=== PATIENT | male | born 1955 | race Caucasian/White ===

== ENCOUNTER 2017-05-02 09:27 | Inpatient (IN) | payer OTHER ==
[~2017-05-02] VITALS: Ht 172.7 cm; Wt 65.5 kg
[~2017-05-02 09:27] MED LIST: DIPH2%T PO
[2017-05-02 09:28] VITALS: BP 130/94; PULSE 80; RESP 20; TEMP 98.5; O2SAT 93
[2017-05-02] MEDS ORDERED: SODIUM CHLOR 0.9% 1000 ML INJ 1,000 ML IV SCH (09:39)
[2017-05-02] MEDS ORDERED: ONDANSETRON HCL 4 MG/2 ML VIAL IVP ONE (09:45)
[2017-05-02] MEDS ORDERED: SODIUM CHLORIDE 0.9% FLUSH 10 ML FLUSH IV FLUSH PRN ×2 (09:45→11:15)
[2017-05-02] MEDS ORDERED: MORPHINE SULFATE 4 MG/ML INJ IV PUSH ONE (09:45)
--- NOTE | 2017-05-02 09:48 | PD ---
HPI Chief Complaint: GI Complaint Time Seen by Provider: 09:35 Travel History International Travel<30 days: No Contact w/Intl Traveler<30days: No Traveled to known affect area: No History of Present Illness HPI The patient is a 61-year-old male who presents to the emergency department for right upper quadrant abdominal pain of one week's duration. The patient notes over the last week he has had right upper quadrant abdominal pain associated with nausea and vomiting. The patient notes decreased oral intake secondary to persistent pain. The patient denies any diarrhea, constipation, or change in bowel habits. The patient denies any associated fever, chills, or sweats. The pain is sharp, located right upper quadrant, radiates to the right mid back, is associated with nausea and vomiting. The patient does have a history of hepatitis C and COPD. The patient currently takes no medications on a regular basis and does not have a primary physician. He denies any alcohol ingestion. He denies any previous abdominal surgeries. The patient last ate at 7 AM, yogurt. PFSH Past Medical History Asthma: No Blood Disorders: Yes (hypotysis today) Heart Rhythm Problems: No Cancer: No Cardiovascular Problems: No High Cholesterol: No Chemotherapy: No Chest Pain: No Congestive Heart Failure: No COPD: Yes (emphysema, bronchitis since childhood) Cerebrovascular Accident: No Diabetes: No Endocrine: No Gastrointestinal Disorders: Yes (Hepatitis C) GERD: No Genitourinary: No Headaches: Yes Hepatitis: No Hiatal Hernia: No Immune Disorder: No Neurologic: No Psychiatric: No Reproductive: No Respiratory: Yes Migraines: Yes Radiation Therapy: No Seizures: No Sleep Apnea: No Thyroid Disease: No Ulcer: No Tetanus Vaccination: > 5 Years Past Surgical History Abdominal Surgery: No Appendectomy: No Cardiac Surgery: No Cholecystectomy: No Ear Surgery: No Endocrine Surgery: No Eye Surgery: No Genitourinary Surgery: No Gynecologic Surgery: No Oral Surgery: No Thoracic Surgery: No Other Surgery: Yes (ortho surgery to rt hip) Social History Alcohol Use: No Tobacco Use: No Substance Use: No Allergies-Medications (Allergen,Severity, Reaction): Coded Allergies: prednisone (Unverified Allergy, Severe, Irritability/Anxiety, 05/02/17) PT STATES HE FELT LIKE JUMPING OUT OF THE WINDOW WHEN HE TOOK PREDNISONE LAST *MDRO Multi-Drug Resistant Organism (Unverified Adverse Reaction, Unknown , 05/02/17) MRSA 2009 MRSA and wound Reported Meds & Prescriptions Reported Meds & Active Scripts Active No Active Prescriptions or Reported Medications Review of Systems Except as stated in HPI: all other systems reviewed are Neg General / Constitutional: No: Fever Cardiovascular: No: Chest Pain or Discomfort Respiratory: No: Shortness of Breath Gastrointestinal: Positive: Nausea, Vomiting, Abdominal Pain, No: Diarrhea Genitourinary: No: Dysuria Physical Exam Narrative GENERAL: Awake, alert, pleasant 61-year-old male who appears his stated age and is in no acute respiratory distress. SKIN: Focused skin assessment warm/dry. HEAD: Atraumatic. Normocephalic. EYES: Pupils equal and round. No scleral icterus. No injection or drainage. ENT: No nasal bleeding or discharge. Mucous membranes pink and moist. NECK: Trachea midline. No JVD. CARDIOVASCULAR: Regular rate and rhythm. No murmur appreciated. RESPIRATORY: No accessory muscle use. Clear to auscultation. Breath sounds equal bilaterally. GASTROINTESTINAL: Abdomen soft, tender palpation right upper quadrant consistent with positive Valdez sign. No guarding or rigidity. Back: No CVA tenderness. MUSCULOSKELETAL: No obvious deformities. No clubbing. No cyanosis. No edema. NEUROLOGICAL: Awake and alert. No obvious cranial nerve deficits. Motor grossly within normal limits. Normal speech. PSYCHIATRIC: Appropriate mood and affect; insight and judgment normal. Data Data Last Documented VS Vital Signs Date Time Temp Pulse Resp B/P (MAP) Pulse Ox O2 Delivery O2 Flow Rate FiO2 05/02/17 09:28 98.5 80 20 130/94 (106) 93 Room Air Orders Orders Complete Blood Count With Diff (05/02/17 09:39) Comprehensive Metabolic Panel (05/02/17 09:39) Lipase (05/02/17 09:39) Urinalysis - C+S If Indicated (05/02/17 09:39) Us Abdomen Gallbladder (05/02/17 ) Iv Access Insert/Monitor (05/02/17 09:39) Ecg Monitoring (05/02/17 09:39) Oximetry (05/02/17 09:39) Morphine Inj (Morphine Inj) (05/02/17 09:45) Ondansetron Inj (Zofran Inj) (05/02/17 09:45) Sodium Chlor 0.9% 1000 Ml Inj (Ns 1000 M (05/02/17 09:39) Sodium Chloride 0.9% Flush (Ns Flush) (05/02/17 09:45) Ampicillin-Sulbactam Inj (Unasyn Inj) (05/02/17 10:45) Act Partial Throm Time (Ptt) (05/02/17 10:32) Prothrombin Time / Inr (Pt) (05/02/17 10:32) Electrocardiogram (05/02/17 ) Chest, Single Ap (05/02/17 ) Labs Laboratory Tests Test 05/02/17 09:50 White Blood Count 6.1 TH/MM3 Red Blood Count 3.95 MIL/MM3 Hemoglobin 13.0 GM/DL Hematocrit 37.3 % Mean Corpuscular Volume 94.4 FL Mean Corpuscular Hemoglobin 32.9 PG Mean Corpuscular Hemoglobin Concent 34.9 % Red Cell Distribution Width 14.1 % Platelet Count 139 TH/MM3 Mean Platelet Volume 8.7 FL Neutrophils (%) (Auto) 73.7 % Lymphocytes (%) (Auto) 14.6 % Monocytes (%) (Auto) 8.6 % Eosinophils (%) (Auto) 2.6 % Basophils (%) (Auto) 0.5 % Neutrophils # (Auto) 4.5 TH/MM3 Lymphocytes # (Auto) 0.9 TH/MM3 Monocytes # (Auto) 0.5 TH/MM3 Eosinophils # (Auto) 0.2 TH/MM3 Basophils # (Auto) 0.0 TH/MM3 CBC Comment DIFF FINAL Differential Comment Urine Color YELLOW Urine Turbidity CLEAR Urine pH 7.5 Urine Specific [place] 1.016 Urine Protein TRACE mg/dL Urine Glucose (UA) NEG mg/dL Urine Ketones NEG mg/dL Urine Occult Blood NEG Urine Nitrite NEG Urine Bilirubin NEG Urine Urobilinogen LESS THAN 2.0 MG/DL Urine Leukocyte Esterase NEG Urine RBC LESS THAN 1 /hpf Urine WBC LESS THAN 1 /hpf Urine Mucus FEW /lpf Microscopic Urinalysis Comment CULT NOT INDICATED Blood Urea Nitrogen 11 MG/DL Creatinine 1.05 MG/DL Random Glucose 133 MG/DL Total Protein 7.9 GM/DL Albumin 3.1 GM/DL Calcium Level 8.3 MG/DL Alkaline Phosphatase 76 U/L Aspartate Amino Transf (AST/SGOT) 24 U/L Alanine Aminotransferase (ALT/SGPT) 23 U/L Total Bilirubin 0.8 MG/DL Sodium Level 132 MEQ/L Potassium Level 4.0 MEQ/L Chloride Level 96 MEQ/L Carbon Dioxide Level 29.4 MEQ/L Anion Gap 7 MEQ/L Estimat Glomerular Filtration Rate 72 ML/MIN Lipase 45 U/L [facility] Medical Decision Making Medical Screen Exam Complete: Yes Emergency Medical Condition: Yes Medical Record Reviewed: Yes Interpretation(s) Laboratory Tests Test 05/02/17 09:50 White Blood Count 6.1 TH/MM3 Red Blood Count 3.95 MIL/MM3 Hemoglobin 13.0 GM/DL Hematocrit 37.3 % Mean Corpuscular Volume 94.4 FL Mean Corpuscular Hemoglobin 32.9 PG Mean Corpuscular Hemoglobin Concent 34.9 % Red Cell Distribution Width 14.1 % Platelet Count 139 TH/MM3 Mean Platelet Volume 8.7 FL Neutrophils (%) (Auto) 73.7 % Lymphocytes (%) (Auto) 14.6 % Monocytes (%) (Auto) 8.6 % Eosinophils (%) (Auto) 2.6 % Basophils (%) (Auto) 0.5 % Neutrophils # (Auto) 4.5 TH/MM3 Lymphocytes # (Auto) 0.9 TH/MM3 Monocytes # (Auto) 0.5 TH/MM3 Eosinophils # (Auto) 0.2 TH/MM3 Basophils # (Auto) 0.0 TH/MM3 CBC Comment DIFF FINAL Differential Comment Urine Color YELLOW Urine Turbidity CLEAR Urine pH 7.5 Urine Specific [place] 1.016 Urine Protein TRACE mg/dL Urine Glucose (UA) NEG mg/dL Urine Ketones NEG mg/dL Urine Occult Blood NEG Urine Nitrite NEG Urine Bilirubin NEG Urine Urobilinogen LESS THAN 2.0 MG/DL Urine Leukocyte Esterase NEG Urine RBC LESS THAN 1 /hpf Urine WBC LESS THAN 1 /hpf Urine Mucus FEW /lpf Microscopic Urinalysis Comment CULT NOT INDICATED Blood Urea Nitrogen 11 MG/DL Creatinine 1.05 MG/DL Random Glucose 133 MG/DL Total Protein 7.9 GM/DL Albumin 3.1 GM/DL Calcium Level 8.3 MG/DL Alkaline Phosphatase 76 U/L Aspartate Amino Transf (AST/SGOT) 24 U/L Alanine Aminotransferase (ALT/SGPT) 23 U/L Total Bilirubin 0.8 MG/DL Sodium Level 132 MEQ/L Potassium Level 4.0 MEQ/L Chloride Level 96 MEQ/L Carbon Dioxide Level 29.4 MEQ/L Anion Gap 7 MEQ/L Estimat Glomerular Filtration Rate 72 ML/MIN Lipase 45 U/L Ultrasound of the gallbladder reveals gallbladder wall thickening with sludge. Additionally, Sonata refer reports a positive sonographic Valdez's sign suggesting acute gallbladder inflammation. Remainder of the examination demonstrates no significant abnormality. Chest x-ray reveals no acute cardiopulmonary abnormality identified. Differential Diagnosis Differential diagnosis includes cholecystitis, biliary colic, choledocholithiasis, symptomatic gallstones, pancreatitis, pyelonephritis, nephrolithiasis, gastritis, lower lobe pneumonia, diverticulitis. Narrative Course IV was established, labs are drawn and sent, and the patient was placed on cardiac telemetry monitoring and continuous pulse oximetry monitoring. The patient was administered morphine, Zofran, and IV fluids. Ultrasound of the gallbladder was ordered. The patient's white count, LFTs, and lipase are unremarkable. The patient's ultrasound reveals gallbladder wall thickening with sludge and a positive sonographic Valdez sign suggesting acute gallbladder inflammation. I reviewed the patient's EMR, he had a CTA angiogram performed 2013 which revealed a gallstone at that time. The patient's LFTs and lipase are normal now, I doubt choledocholithiasis, I suspect acute cholecystitis. The patient was administered Unasyn 3 g intravenously and a call was placed to the on-call surgeon, Dr. Ozuna, at 10:30 AM. I discussed the patient with Dr. Ozuna at 10:35 AM who recommends antibiotics and admission to medicine, he may just treat with IV antibiotics as the pain has been going on for one week and the patient may have significant inflammation. Therefore, the on-call medical team was paged for admission. I discussed the patient with the on-call medical service who agrees with admission. Physician Communication Physician Communication I discussed the patient with the on-call medical service who agrees with admission. Diagnosis Primary Impression: Acute cholecystitis Additional Impression: COPD (chronic obstructive pulmonary disease) Qualified Codes: J44.9 - Chronic obstructive pulmonary disease, unspecified Admitting Information Admitting Physician Requests: Admit Scripts No Active Prescriptions or Reported Meds Condition: Yonis Garcia MD May 02, 2017 09:48
[2017-05-02 10:03] LABS: AUTOMATED NEUTROPHIL # 4.5 TH/MM3 (1.8-7.7); BASOPHIL % 0.5 % (0.0-2.0); EOSINOPHIL # 0.2 TH/MM3 (0-0.4); EOSINOPHIL % 2.6 % (0.0-4.0); HEMATOCRIT 37.3 % (39.0-51.0); HEMO FLAGS DIFF FINAL; LYMPH % 14.6 % (9.0-44.0); LYMPHOCYTE # 0.9 TH/MM3 (1.0-4.8); MEAN CELL VOLUME 94.4 FL (80.0-100.0); MEAN CORPUSCULAR HEMOGLOBIN 32.9 PG (27.0-34.0); MEAN CORPUSCULAR HGB CONC 34.9 % (32.0-36.0); MONO % 8.6 % (0.0-8.0); NEUT % 73.7 % (16.0-70.0); PLATELET COUNT 139 TH/MM3 (150-450); RED BLOOD COUNT 3.95 MIL/MM3 (4.50-5.90); RED CELL DISTRIBUTION WIDTH 14.1 % (11.6-17.2); WHITE BLOOD COUNT 6.1 TH/MM3 (4.0-11.0)
[2017-05-02 10:15] VITALS: O2SAT 99
[2017-05-02 10:17] LABS: ALT (GPT) 23 U/L (12-78); ANION GAP 7 MEQ/L (5-15); AST (GOT) 24 U/L (15-37); BICARBONATE 29.4 MEQ/L (21.0-32.0); BLOOD UREA NITROGEN 11 MG/DL (7-18); BLOOD, URINE NEG (NEG); CHLORIDE 96 MEQ/L (98-107); GLOMERULAR FILTRATION RATE 72 ML/MIN (>89); GLUCOSE,URINE NEG (NEG); KETONE, URINE NEG (NEG); MUCUS URINE FEW /lpf (OCC); NITRITE,URINE NEG (NEG); PH, URINE 7.5 (5.0-8.5); SODIUM (NA) 132 MEQ/L (136-145); URINE COLOR YELLOW (YELLW/STRAW)
[2017-05-02 10:18] LABS: COMMENT (UR) CULT NOT INDICATED; CULTURE IF INDICATED CULT NOT INDICATED
[2017-05-02 10:20] LABS: ALKALINE PHOSPHATASE 76 U/L (45-117); TOTAL BILIRUBIN ADULT 0.8 MG/DL (0.2-1.0)
--- NOTE | 2017-05-02 10:26 | RADRPT ---
EXAM DATE/TIME: 05/02/2017 09:49 [facility] COMPARISON: CT THORAX W/O CONTRAST, February 01, 2014, 13:03. US ABDOMEN - LIVER, December 18, 2013, 8:13. INDICATIONS : Right upper quadrant pain. MEDICAL HISTORY : Chronic obstructive pulmonary disease. Emphysema. Hepatitis C. Migraines. Chronic bronchitis. Dyspnea . MRSA. SURGICAL HISTORY : Right hip. ENCOUNTER: Initial ACUITY: 1 week PAIN SCORE: 9/10 LOCATION: Right upper quadrant MEASUREMENTS: LIVER: 12.9 cm length COMMON DUCT: 6 mm RIGHT KIDNEY: 10.2 x 5.0 x 5.3 cm FINDINGS: LIVER: Normal echotexture without focal lesion or ductal dilatation. COMMON DUCT: No intraluminal mass or stone visualized. GALLBLADDER: Gallbladder contains sludge and demonstrates mildly thickened wall. The gear cutting machine operator reports a sonogra phic Valdez's. PANCREAS: The visualized portions are within normal limits. RIGHT KIDNEY: No evidence of hydronephrosis, stone, or mass. CONCLUSION: 1. Gallbladder wall thickening with sludge. Additionally, gear cutting machine operator reports a positive sonographic Valdez sign suggesting acute gallbladder inflammation. 2. Remainder of the examination demonstrates no significant abnormality. Anthony Troy MD on May 02, 2017 at 10:22 Board Certified Radiologist. This report was verified electronically.
[2017-05-02] MEDS ORDERED: AMPICILLIN-SULBACTAM INJ 3 GM in SODIUM CHLORIDE 0.9% INJ 100 ML IV ONE (10:45)
--- NOTE | 2017-05-02 10:50 | RADRPT ---
EXAM DATE/TIME: 05/02/2017 10:28 [facility] COMPARISON: CHEST PA & LAT, December 17, 2013, 14:09. INDICATIONS : Right lower anterior rib pain. No prior trauma. MEDICAL HISTORY : None. SURGICAL HISTORY : None. ENCOUNTER: Initial ACUITY: 1 week PAIN SCORE: 10/10 LOCATION: Bilateral chest FINDINGS: Portable AP view of the chest demonstrates a normal-sized cardiac silhouette. No effusion, consolidat ion, or pneumothorax is visualized. The bones and soft tissues demonstrate no acute abnormality. Ther e is mild dextroscoliosis with degenerative change. CONCLUSION: No acute cardiopulmonary abnormality is identified. Anthony Troy MD on May 02, 2017 at 10:48 Board Certified Radiologist. This report was verified electronically.
--- NOTE | 2017-05-02 11:03 | HHI.HP ---
HPI Service Family Medicine Primary Care Physician No Primary Care Physician Admission Diagnosis acute cholecystitis, COPD Diagnoses: Chief Complaint: RUQ pain for a week International Travel<30 Days: No Contact w/Intl Traveler<30days: No Known Affected Area: No History of Present Illness Mr Castaneda is a 61 YO male w/PMHx COPD, GERD, IVDU and HCV who presents with 1 wk RUQ pain and bilious emesis each time he ate and acid reflux of 1 wk. He reports RUQ stabbing pain radiating to his right upper back that is 9/10 on pain scale and often doubles him over. Pain comes and goes, is sharp and stabbing, and most often occurs after a meal in which he describes feeling full after only a few bites, followed by bilious, non-bloody emesis. He took Ibuprofen w/o relief and then was given Lortab by his sister that reduced the pain. He is a former smoker who coughs at night. He reports feeling feverish earlier in the week with chills and night sweats. Pt takes no medications and does not have a PCP. He denies any alcohol ingestion. He denies previous abdominal surgeries, diarrhea, bloody or black tarry stools, CP, SOB, dizziness , and DVT pain; however he reports being an easy bleeder without epistaxis. (Stone Nichols MD R1) Review of Systems Constitutional: COMPLAINS OF: Weight loss, Change in appetite, Night Sweats Endocrine: DENIES: Heat/cold intolerance, Polydipsia, Polyuria, Polyphagia Eyes: DENIES: Blurred vision, Diplopia, Eye inflammation, Eye pain, Vision loss , Photosensitivity, Double Vision Ears, nose, mouth, throat: DENIES: Tinnitus, Hearing loss, Vertigo, Nasal discharge, Oral lesions, Throat pain, Hoarseness, Ear Pain, Running Nose, Epistaxis, Sinus Pain, Toothache, Odynophagia Respiratory: COMPLAINS OF: Cough, DENIES: Apneas, Snoring, Wheezing, Hemoptysis , Sputum production, Shortness of breath Cardiovascular: DENIES: Chest pain, Palpitations, Syncope, Dyspnea on Exertion , PND, Lower Extremity Edema, Orthopnea, Claudication Gastrointestinal: COMPLAINS OF: Abdominal pain, Nausea, Vomiting, DENIES: Black stools, Bloody stools, Constipation, Diarrhea, Difficulty Swallowing, Anorexia Genitourinary: COMPLAINS OF: Hematuria, DENIES: Sexual dysfunction, Urinary frequency, Urinary incontinence, Urgency, Dysuria, Nocturia, Penile Discharge, Testicular Pain, Testicular Swelling Musculoskeletal: COMPLAINS OF: Back pain Integumentary: DENIES: Abnormal pigmentation, Nail changes, Pruritus, Rash ( Stone Nichols MD R1) Past Family Social History Past Medical History Resp: COPD, bronchitis as a child Infectious: HCV Past Surgical History denies Reported Medications does not take regular medications (Stone Nichols MD R1) Allergies: Coded Allergies: prednisone (Unverified Allergy, Severe, Irritability/Anxiety, 05/02/17) PT STATES HE FELT LIKE JUMPING OUT OF THE WINDOW WHEN HE TOOK PREDNISONE LAST *MDRO Multi-Drug Resistant Organism (Unverified Adverse Reaction, Unknown , 05/02/17) MRSA 2009 MRSA and wound Active Ordered Medications Current Medications Medications (Trade) Dose Ordered Sig/Makenzie Route Start Time Stop Time Status Last Admin Sodium Chloride 1,000 ml @ 100 mls/hr Q10H IV 05/02/17 12:00 05/02/17 12:00 (NS Flush) 2 ml UNSCH PRN IV FLUSH 05/02/17 11:15 (NS Flush) 2 ml BID IV FLUSH 05/02/17 21:00 Ampicillin Sodium/ Sulbactam Sodium 3 gm/Sodium Chloride 100 ml @ 200 mls/hr Q6H IV 05/02/17 17:00 (Zofran Inj) 4 mg Q6H PRN IV 05/02/17 17:15 (Tylenol) 650 mg Q6H PRN PO 05/02/17 11:15 (Percocet 5-325 Mg) 1 tab Q4H PRN PO 05/02/17 11:15 (Morphine Inj) 2 mg Q2H PRN IV 05/02/17 11:15 Family History Mother had gallstones Social History no smoking since 3.5 yrs--smoked 42 yrs/2-3ppd no etoh for 35 years former IVDU till 34 YOA (Stone Nichols MD R1) Physical Exam Vital Signs Vital Signs Date Time Temp Pulse Resp B/P (MAP) Pulse Ox O2 Delivery O2 Flow Rate FiO2 05/02/17 10:15 99 05/02/17 09:28 98.5 80 20 130/94 (106) 93 Room Air Physical Exam GENERAL: This is a well-nourished, well-developed patient, in no apparent distress. SKIN: No rashes, ecchymoses or lesions. Cool and dry. No jaundice. HEAD: Atraumatic. Normocephalic. EYES: Pupils equal round and reactive. Extraocular motions intact. No scleral icterus. No injection or drainage. ENT: Nose without bleeding, purulent drainage or septal hematoma. Throat without erythema, tonsillar hypertrophy or exudate. Uvula midline. Airway patent. NECK: Trachea midline. No lymphadenopathy. Supple, nontender, no meningeal signs. CARDIOVASCULAR: Regular rate and rhythm without murmurs, gallops, or rubs. RESPIRATORY: Clear to auscultation. Breath sounds equal bilaterally. No wheezes , rales, or rhonchi. GASTROINTESTINAL: Abdomen soft, RUQ tenderness, nondistended. No hepato- splenomegaly, or palpable masses. No guarding. Normal BS. MUSCULOSKELETAL: Extremities without clubbing, cyanosis, or edema. No joint tenderness, effusion, or edema noted. No calf tenderness. NEUROLOGICAL: Awake and alert. Cranial nerves II through XII intact. Motor and sensory grossly within normal limits. Five out of 5 muscle strength in all muscle groups. Normal speech. Laboratory Laboratory Tests Test 05/02/17 09:50 White Blood Count 6.1 Red Blood Count 3.95 Hemoglobin 13.0 Hematocrit 37.3 Mean Corpuscular Volume 94.4 Mean Corpuscular Hemoglobin 32.9 Mean Corpuscular Hemoglobin Concent 34.9 Red Cell Distribution Width 14.1 Platelet Count 139 Mean Platelet Volume 8.7 Neutrophils (%) (Auto) 73.7 Lymphocytes (%) (Auto) 14.6 Monocytes (%) (Auto) 8.6 Eosinophils (%) (Auto) 2.6 Basophils (%) (Auto) 0.5 Neutrophils # (Auto) 4.5 Lymphocytes # (Auto) 0.9 Monocytes # (Auto) 0.5 Eosinophils # (Auto) 0.2 Basophils # (Auto) 0.0 CBC Comment DIFF FINAL Differential Comment Urine Color YELLOW Urine Turbidity CLEAR Urine pH 7.5 Urine Specific [place] 1.016 Urine Protein TRACE Urine Glucose (UA) NEG Urine Ketones NEG Urine Occult Blood NEG Urine Nitrite NEG Urine Bilirubin NEG Urine Urobilinogen LESS THAN 2.0 Urine Leukocyte Esterase NEG Urine RBC LESS THAN 1 Urine WBC LESS THAN 1 Urine Mucus FEW Microscopic Urinalysis Comment CULT NOT INDICATED Blood Urea Nitrogen 11 Creatinine 1.05 Random Glucose 133 Total Protein 7.9 Albumin 3.1 Calcium Level 8.3 Alkaline Phosphatase 76 Aspartate Amino Transf (AST/SGOT) 24 Alanine Aminotransferase (ALT/SGPT) 23 Total Bilirubin 0.8 Sodium Level 132 Potassium Level 4.0 Chloride Level 96 Carbon Dioxide Level 29.4 Anion Gap 7 Estimat Glomerular Filtration Rate 72 Lipase 45 (Stone Nichols MD R1) Result Diagram: 05/02/17 0950 05/02/17 0950 Imaging Last Impressions Gall Bladder Ultrasound 05/02/17 0000 Signed Impressions: Service Date/Time: Tuesday, May 02, 2017 09:49 - CONCLUSION: 1. Gallbladder wall thickening with sludge. Additionally, crime victim specialist reports a positive sonographic Valdez sign suggesting acute gallbladder inflammation. 2. Remainder of the examination demonstrates no significant abnormality. Anthony Troy MD Chest X-Ray 05/02/17 0000 Signed Impressions: Service Date/Time: Tuesday, May 02, 2017 10:28 - CONCLUSION: No acute cardiopulmonary abnormality is identified. Anthony Troy MD (Stone Nichols MD R1) Caprini VTE Risk Assessment Caprini VTE Risk Assessment: No/Low Risk (score <= 1) VTE Pharm Contraindication: hx of easy bleeding (Stone Nichols MD R1) Assessment and Plan Assessment and Plan 61 YO male w/PMHx COPD and HCV who presents with RUQ postprandial pain and bilious emesis with CT scan indicating biliary sludge w/o stones consistent with acute cholecystitis. Dr Ozuna in surgery has been consulted and we are following his recommendations. Admitting as inpatient. - Unasyn abx IV - IVF - Pain medication - Monitor vitals and labs - Watchful waiting to see if the problem can be managed expectantly Code Status FULL Discussed Condition With Yasmin Iqbal and Josi (Stone Nichols MD R1) Attending Attestation Patient seen and examined. Case reviewed and discussed with the resident team. Agree with plan of care as discussed with me and documented in the resident note. saw pt on admission in the ED. he was having trouble for days keeping down food or fluids. appreciate help of Dr Ozuna! (Billie Iqbal MD) Problem List: (1) Acute cholecystitis ICD Codes: K81.0 - Acute cholecystitis Status: Acute Plan: Intermittent RUQ pain for 1 week, worse postprandial with associated nausea and bilious emesis. Dr Ozuna in gen surgery consulted and following recs -Unasyn 3g IV q6h -NS IVF @ 100ml/hr -Tylenol 650 mg q6h for fever -Zofran 4mg IV q6h for nausea -No anticoagulation Pain control: -Percocet 5-325 PO q4h pain 1-5 -Morphine 2mg q3h pain 6-10 (2) GERD (gastroesophageal reflux disease) ICD Codes: K21.9 - Gastro-esophageal reflux disease without esophagitis Status: Acute Plan: Symptomatic with acid reflux over the last week, likely exacerbated by emesis and stomach upset 2/2 cholecystitis -Start protonix 40 mg/day (3) Hepatitis C ICD Codes: B19.20 - Hepatitis C Status: Chronic Plan: Pt reports HCV however states he has never been symptomatic or treated for the disease -Monitor LFTs (4) COPD (chronic obstructive pulmonary disease) ICD Codes: J44.9 - COPD (chronic obstructive pulmonary disease) Status: Chronic Plan: -Stable and on no medication (5) FEN/GI/PPx Status: Acute Plan: -Hold anticoagulation due to hx of easy bleeding -IVF as above -Regular diet as tolerated -PPI as above -OOB as tolerated -Zofran for nausea as above (Stone Nichols MD R1) Physician Certification 2 Midnight Certification Type: Admission for Inpatient Services Order for Inpatient Services The services are ordered in accordance with Medicare regulations or non- Medicare payer requirements, as applicable. In the case of services not specified as inpatient-only, they are appropriately provided as inpatient services in accordance with the 2-midnight benchmark. Estimated LOS (days): 2 days is the estimated time the patient will need to remain in the hospital, assuming treatment plan goals are met and no additional complications. Post-Hospital Plan: Home (Stone Nichols MD R1) Problem Qualifiers (1) GERD (gastroesophageal reflux disease): Qualified Codes: K21.9 - Gastro-esophageal reflux disease without esophagitis (2) COPD (chronic obstructive pulmonary disease): Qualified Codes: J44.9 - Chronic obstructive pulmonary disease, unspecified Stone Nichols MD R1 May 02, 2017 11:02 Billie Iqbal MD May 03, 2017 10:42
[2017-05-02] MEDS ORDERED: ACETAMINOPHEN 325 MG TAB PO PRN (11:15)
[2017-05-02 11:25] LABS: APTT (PATIENT) 33.2 SEC (24.3-30.1); INTERNATIONAL NORMALIZED RATIO 1.1 RATIO
[2017-05-02] MEDS: SODIUM CHLOR 0.9% 1000 ML INJ 1,000 ML IV SCH ×3 (12:00→21:50)
--- NOTE | 2017-05-02 12:48 | PD.CONS ---
HPI Service General Surgery Consult Requested By Dr. Hansen Reason for Consult cholecystitis Primary Care Physician No Primary Care Physician History of Present Illness The patient is a 61-year-old male who complains of right upper quadrant pain for the last week. He has intermittently been unable to tolerate oral intake and this was worse last night when he came to the emergency department. The pain radiates around to the right side of his back. He had similar pain about 6 months ago which lasted only for 1 day. No previous abdominal surgeries. He was evaluated and noted to have normal labs. However ultrasound of the gallbladder shows sludge and mild wall thickening. Review of Systems Constitutional: DENIES: Fever, Chills Eyes: DENIES: Eye inflammation, Eye pain Respiratory: DENIES: Cough, Wheezing Cardiovascular: DENIES: Chest pain, Palpitations Gastrointestinal: COMPLAINS OF: Abdominal pain, Nausea Musculoskeletal: DENIES: Muscle aches, Stiffness Integumentary: DENIES: Pruritus, Rash Neurologic: DENIES: Paresthesias, Seizures Past Family Social History Past Medical History COPD Hepatitis C- he reports he has not had any treatment as he is uninsured and cannot afford it Past Surgical History Right hip surgery as a child Reported Medications Reported Meds & Active Scripts Active No Active Prescriptions or Reported Medications Allergies: Coded Allergies: prednisone (Unverified Allergy, Severe, Irritability/Anxiety, 05/02/17) PT STATES HE FELT LIKE JUMPING OUT OF THE WINDOW WHEN HE TOOK PREDNISONE LAST *MDRO Multi-Drug Resistant Organism (Unverified Adverse Reaction, Unknown , 05/02/17) MRSA 2009 MRSA and wound Active Ordered Medications Current Medications Medications (Trade) Dose Ordered Sig/Makenzie Route Start Time Stop Time Status Last Admin Sodium Chloride 1,000 ml @ 100 mls/hr Q10H IV 05/02/17 12:00 (NS Flush) 2 ml UNSCH PRN IV FLUSH 05/02/17 11:15 (NS Flush) 2 ml BID IV FLUSH 05/02/17 21:00 Ampicillin Sodium/ Sulbactam Sodium 3 gm/Sodium Chloride 100 ml @ 200 mls/hr Q6H IV 05/02/17 17:00 (Zofran Inj) 4 mg Q6H PRN IV 05/02/17 17:15 (Tylenol) 650 mg Q6H PRN PO 05/02/17 11:15 (Percocet 5-325 Mg) 1 tab Q4H PRN PO 05/02/17 11:15 (Morphine Inj) 2 mg Q2H PRN IV 05/02/17 11:15 Family History Noncontributory Social History No alcohol tobacco or drug use. He smoked for 40 years prior to stopping recently. Physical Exam Vital Signs Vital Signs Date Time Temp Pulse Resp B/P (MAP) Pulse Ox O2 Delivery O2 Flow Rate FiO2 05/02/17 10:15 99 05/02/17 09:28 98.5 80 20 130/94 (106) 93 Room Air Physical Exam GENERAL: Awake and alert. No acute distress. Cooperative. HEAD: Normocephalic. Atraumatic. EYES: Pupils equal round and reactive to light bilaterally. No scleral icterus. ENT: Moist oral mucosa. NECK: Trachea midline. CHEST: Lungs clear to auscultation bilaterally with no wheezing or rhonchi. No respiratory distress. CARDIOVASCULAR: Regular rate and rhythm. ABDOMEN: Soft and nondistended. Tenderness to palpation in the right upper abdomen with positive Valdez sign. EXTREMITIES: No cyanosis or edema. SKIN: Warm, dry, nonjaundiced. Laboratory Laboratory Tests Test 05/02/17 09:50 05/02/17 10:45 White Blood Count 6.1 Red Blood Count 3.95 Hemoglobin 13.0 Hematocrit 37.3 Mean Corpuscular Volume 94.4 Mean Corpuscular Hemoglobin 32.9 Mean Corpuscular Hemoglobin Concent 34.9 Red Cell Distribution Width 14.1 Platelet Count 139 Mean Platelet Volume 8.7 Neutrophils (%) (Auto) 73.7 Lymphocytes (%) (Auto) 14.6 Monocytes (%) (Auto) 8.6 Eosinophils (%) (Auto) 2.6 Basophils (%) (Auto) 0.5 Neutrophils # (Auto) 4.5 Lymphocytes # (Auto) 0.9 Monocytes # (Auto) 0.5 Eosinophils # (Auto) 0.2 Basophils # (Auto) 0.0 CBC Comment DIFF FINAL Differential Comment Urine Color YELLOW Urine Turbidity CLEAR Urine pH 7.5 Urine Specific [place] 1.016 Urine Protein TRACE Urine Glucose (UA) NEG Urine Ketones NEG Urine Occult Blood NEG Urine Nitrite NEG Urine Bilirubin NEG Urine Urobilinogen LESS THAN 2.0 Urine Leukocyte Esterase NEG Urine RBC LESS THAN 1 Urine WBC LESS THAN 1 Urine Mucus FEW Microscopic Urinalysis Comment CULT NOT INDICATED Blood Urea Nitrogen 11 Creatinine 1.05 Random Glucose 133 Total Protein 7.9 Albumin 3.1 Calcium Level 8.3 Alkaline Phosphatase 76 Aspartate Amino Transf (AST/SGOT) 24 Alanine Aminotransferase (ALT/SGPT) 23 Total Bilirubin 0.8 Sodium Level 132 Potassium Level 4.0 Chloride Level 96 Carbon Dioxide Level 29.4 Anion Gap 7 Estimat Glomerular Filtration Rate 72 Lipase 45 Prothrombin Time 12.0 Prothromb Time International Ratio 1.1 Activated Partial Thromboplast Time 33.2 Result Diagram: 05/02/17 0950 05/02/17 0950 Imaging Last Impressions Gall Bladder Ultrasound 05/02/17 0000 Signed Impressions: Service Date/Time: Tuesday, May 02, 2017 09:49 - CONCLUSION: 1. Gallbladder wall thickening with sludge. Additionally, mail clerks supervisor reports a positive sonographic Valdez sign suggesting acute gallbladder inflammation. 2. Remainder of the examination demonstrates no significant abnormality. Anthony Troy MD Chest X-Ray 05/02/17 0000 Signed Impressions: Service Date/Time: Tuesday, May 02, 2017 10:28 - CONCLUSION: No acute cardiopulmonary abnormality is identified. Anthony Troy MD Assessment and Plan Assessment and Plan 61-year-old male who has evaluation consistent with acute cholecystitis. He has had pain for proximally one week and I recommend treatment with IV antibiotics followed by cholecystectomy in 4-6 weeks. If he worsens significantly during this hospitalization would plan to proceed with cholecystectomy at that time. I will place him on clear liquids today and if he is tolerating clears with no nausea or vomiting he could be started on a low- fat diet. Mckinley Ozuna MD May 02, 2017 12:48
[2017-05-02 15:30] VITALS: BP 128/70; PULSE 53; RESP 20; TEMP 96.1; O2SAT 93
[2017-05-02] MEDS: AMPICILLIN-SULBACTAM INJ 3 GM in SODIUM CHLORIDE 0.9% INJ 100 ML IV SCH ×2 (16:12→21:49)
[2017-05-02] MEDS: MORPHINE SULFATE 4 MG/ML INJ IV PRN ×2 (16:19→18:26)
[2017-05-02 18:19] VITALS: BP 126/74; PULSE 62
[2017-05-02 20:00] VITALS: BP 127/70; PULSE 65; RESP 16; TEMP 98.2; O2SAT 95
[2017-05-02] MEDS: SODIUM CHLORIDE 0.9% FLUSH 10 ML FLUSH IV FLUSH SCH (21:00)
[2017-05-02] MEDS: oxyCODONE/ACETAMINOPHEN 5 MG/325 MG TAB PO PRN (21:49)
[2017-05-03] VITALS: BP 108/67; PULSE 79; RESP 16; TEMP 98.9; O2SAT 90
[2017-05-03 04:00] VITALS: BP 131/81; PULSE 77; RESP 16; TEMP 99.9; O2SAT 95
[2017-05-03] MEDS: AMPICILLIN-SULBACTAM INJ 3 GM in SODIUM CHLORIDE 0.9% INJ 100 ML IV SCH ×4 (04:55→21:32)
[2017-05-03] MEDS ORDERED: HYDROmorphone HCL PF 1 MG/ML VIAL IV PRN (06:15)
[2017-05-03] MEDS ORDERED: NALOXONE HCL 0.4 MG/ML AMP IV PRN (06:15)
[2017-05-03 07:50] VITALS: BP 142/84; PULSE 78; RESP 20; TEMP 98.9; O2SAT 94
--- NOTE | 2017-05-03 08:26 | HHI.PR ---
Subjective Subjective Notes Feels hungry. C/o persistent pain. Objective Vitals/I&O Vital Signs Date Time Temp Pulse Resp B/P (MAP) Pulse Ox O2 Delivery O2 Flow Rate FiO2 05/03/17 04:00 99.9 77 16 131/81 (98) 95 05/02/17 09:28 Room Air Labs Laboratory Tests Test 05/02/17 09:50 05/02/17 10:45 White Blood Count 6.1 Red Blood Count 3.95 Hemoglobin 13.0 Hematocrit 37.3 Mean Corpuscular Volume 94.4 Mean Corpuscular Hemoglobin 32.9 Mean Corpuscular Hemoglobin Concent 34.9 Red Cell Distribution Width 14.1 Platelet Count 139 Mean Platelet Volume 8.7 Neutrophils (%) (Auto) 73.7 Lymphocytes (%) (Auto) 14.6 Monocytes (%) (Auto) 8.6 Eosinophils (%) (Auto) 2.6 Basophils (%) (Auto) 0.5 Neutrophils # (Auto) 4.5 Lymphocytes # (Auto) 0.9 Monocytes # (Auto) 0.5 Eosinophils # (Auto) 0.2 Basophils # (Auto) 0.0 CBC Comment DIFF FINAL Differential Comment Urine Color YELLOW Urine Turbidity CLEAR Urine pH 7.5 Urine Specific [place] 1.016 Urine Protein TRACE Urine Glucose (UA) NEG Urine Ketones NEG Urine Occult Blood NEG Urine Nitrite NEG Urine Bilirubin NEG Urine Urobilinogen LESS THAN 2.0 Urine Leukocyte Esterase NEG Urine RBC LESS THAN 1 Urine WBC LESS THAN 1 Urine Mucus FEW Microscopic Urinalysis Comment CULT NOT INDICATED Blood Urea Nitrogen 11 Creatinine 1.05 Random Glucose 133 Total Protein 7.9 Albumin 3.1 Calcium Level 8.3 Alkaline Phosphatase 76 Aspartate Amino Transf (AST/SGOT) 24 Alanine Aminotransferase (ALT/SGPT) 23 Total Bilirubin 0.8 Sodium Level 132 Potassium Level 4.0 Chloride Level 96 Carbon Dioxide Level 29.4 Anion Gap 7 Estimat Glomerular Filtration Rate 72 Lipase 45 Prothrombin Time 12.0 Prothromb Time International Ratio 1.1 Activated Partial Thromboplast Time 33.2 Date/Time Source Procedure Growth Status 05/02/17 21:38 Blood Peripheral Aerobic Blood Culture Pending Received 05/02/17 21:38 Blood Peripheral Anaerobic Blood Culture Pending Received Radiology Last Impressions Gall Bladder Ultrasound 05/02/17 0000 Signed Impressions: Service Date/Time: Tuesday, May 02, 2017 09:49 - CONCLUSION: 1. Gallbladder wall thickening with sludge. Additionally, news production supervisor reports a positive sonographic Valdez sign suggesting acute gallbladder inflammation. 2. Remainder of the examination demonstrates no significant abnormality. Atnhony Troy MD Chest X-Ray 05/02/17 0000 Signed Impressions: Service Date/Time: Tuesday, May 02, 2017 10:28 - CONCLUSION: No acute cardiopulmonary abnormality is identified. Anthony Troy MD Narrative Exam NAD, appears comfortable in bed Abd: soft, moderate RUQ ttp A/P Assessment and Plan 61 yo M with acute cholecystitis x 1 week Heart healthy diet. Cont IV antibiotics Attempt treatment with antibiotics at this time followed by cholecystectomy in 4 -6 weeks. Mckinley Ozuna MD May 03, 2017 08:26
[2017-05-03] MEDS: oxyCODONE/ACETAMINOPHEN 5 MG/325 MG TAB PO PRN ×4 (08:40→21:31)
[2017-05-03] MEDS: SODIUM CHLORIDE 0.9% FLUSH 10 ML FLUSH IV FLUSH SCH ×2 (08:43→21:00)
[2017-05-03] MEDS: SODIUM CHLOR 0.9% 1000 ML INJ 1,000 ML IV SCH ×2 (08:57→21:32)
[2017-05-03 09:06] LABS: AUTOMATED NEUTROPHIL # 5.2 TH/MM3 (1.8-7.7); BASOPHIL % 0.6 % (0.0-2.0); EOSINOPHIL # 0.1 TH/MM3 (0-0.4); EOSINOPHIL % 1.3 % (0.0-4.0); HEMATOCRIT 37.8 % (39.0-51.0); HEMO FLAGS DIFF FINAL; LYMPH % 12.3 % (9.0-44.0); LYMPHOCYTE # 0.8 TH/MM3 (1.0-4.8); MEAN CELL VOLUME 94.6 FL (80.0-100.0); MEAN CORPUSCULAR HGB CONC 34.9 % (32.0-36.0); MONO % 8.2 % (0.0-8.0); NEUT % 77.6 % (16.0-70.0); PLATELET COUNT 146 TH/MM3 (150-450); RED CELL DISTRIBUTION WIDTH 14.1 % (11.6-17.2); WHITE BLOOD COUNT 6.7 TH/MM3 (4.0-11.0)
--- NOTE | 2017-05-03 09:32 | EKG ---
Date Performed: 05/02/2017 Time Performed: 10:57:49 PTAGE: 61 years EKG: Sinus rhythm LOW QRS VOLTAGE IN PRECORDIAL LEADS Compared to prior tracing no significant change BORDERLINE ECG PREVIOUS TRACING : 12/21/2013 08.43 DOCTOR: Willam Iglesias Interpretating Date/Time 05/03/2017 09:30:22
[2017-05-03 09:47] LABS: BICARBONATE 25.2 MEQ/L (21.0-32.0); POTASSIUM 4.7 MEQ/L (3.5-5.1)
[2017-05-03 11:50] VITALS: BP 126/75; PULSE 75; RESP 20; TEMP 98; O2SAT 94
--- NOTE | 2017-05-03 15:23 | HHI.FPPN ---
Subjective Remarks Mr. Castaneda was afebrile with stable vital signs overnight. Patient reports that he has had continued RUQ pain which he describes has "under " his "liver" and that it feels "hot." Patient describes pain as 7-8/10 in severity. Patient also reports some "acid refux." Patient reports having a bowel movement. Patient does not report chest pain, shortness of breath, or other complaints. (James Warren MD, R3) Objective Vitals Vital Signs Date Time Temp Pulse Resp B/P (MAP) Pulse Ox O2 Delivery O2 Flow Rate FiO2 05/03/17 11:50 98.0 75 20 126/75 (92) 94 05/03/17 07:50 98.9 78 20 142/84 (103) 94 05/03/17 04:00 99.9 77 16 131/81 (98) 95 05/03/17 00:00 98.9 79 16 108/67 (81) 90 05/02/17 22:49 16 05/02/17 20:00 98.2 65 16 127/70 (89) 95 05/02/17 18:19 62 126/74 (91) 05/02/17 15:30 96.1 53 20 128/70 (89) 93 I/O 05/02/17 05/02/17 05/02/17 05/03/17 05/03/17 05/03/17 06:59 14:59 22:59 06:59 14:59 22:59 Intake Total 1100 ml 0 ml 100 ml Output Total 200 ml 550 ml Balance 1100 ml -200 ml -550 ml 100 ml Intake Oral 0 ml IV Total 1100 ml 100 ml Output Urine Total 200 ml 550 ml (James Warren MD, R3) Result Diagram: 05/03/1782505/03/17 08 Imaging Last Impressions Gall Bladder Ultrasound 05/02/17 0000 Signed Impressions: Service Date/Time: Tuesday, May 02, 2017 09:49 - CONCLUSION: 1. Gallbladder wall thickening with sludge. Additionally, theater education teacher reports a positive sonographic Valdez sign suggesting acute gallbladder inflammation. 2. Remainder of the examination demonstrates no significant abnormality. Anthony Troy MD Chest X-Ray 05/02/17 0000 Signed Impressions: Service Date/Time: Tuesday, May 02, 2017 10:28 - CONCLUSION: No acute cardiopulmonary abnormality is identified. Anthony Troy MD Objective Remarks GENERAL: This is a well-nourished, well-developed patient, in no apparent distress. SKIN: No rashes, ecchymoses or lesions. Cool and dry. No jaundice. EYES:Extraocular motions grossly intact. No scleral icterus. CARDIOVASCULAR: Regular rate and rhythm without murmurs. Normal peripheral perfusion RESPIRATORY: Clear to auscultation. Breath sounds equal bilaterally. No wheezes GASTROINTESTINAL: Abdomen soft, RUQ tenderness, nondistended. No guarding. Normal BS MUSCULOSKELETAL: Extremities without edema. No calf tenderness. NEUROLOGICAL: Awake and alert. Cranial nerves grossly intact. Motor and sensory function grossly within normal limits. (James Warren MD, R3) A/P Assessment and Plan 61 YO male w/PMHx COPD and HCV who presents with RUQ postprandial pain and bilious emesis with CT scan indicating biliary sludge w/o stones consistent with acute cholecystitis. Dr Ozuna () consulted (James Warren MD, R3) Attending Attestation Pt. examined and case discussed with resident physicians. I have read the above note and agree with the assessment and plan as discussed with me. I was involved in all medical decision making for this patient. Dwayne Loza MD (Dwayne Loza MD) Problem List: (1) Acute cholecystitis ICD Codes: K81.0 - Acute cholecystitis Status: Acute Plan: Intermittent RUQ pain for 1 week, worse postprandial with associated nausea and bilious emesis. Dr Ozuna in gen surgery consulted and following recs -Unasyn 3g IV q6h -NS IVF @ 100ml/hr -Tylenol 650 mg q6h for fever -Zofran 4mg IV q6h for nausea -No anticoagulation Pain control: -Percocet 5-325 PO q4h pain 1-5 -Morphine 2mg q3h pain 6-10 (2) GERD (gastroesophageal reflux disease) ICD Codes: K21.9 - Gastro-esophageal reflux disease without esophagitis Status: Acute Plan: Symptomatic with acid reflux over the last week, likely exacerbated by emesis and stomach upset 2/2 cholecystitis -Continue protonix 40 mg/day (3) Hepatitis C ICD Codes: B19.20 - Hepatitis C Status: Chronic Plan: Impression: Pt reports HCV however states he has never been symptomatic or treated for the disease. No Hepatitis panel in EMR. Transaminases wnl on admission CMP -No intervention needed at this time (4) COPD (chronic obstructive pulmonary disease) ICD Codes: J44.9 - COPD (chronic obstructive pulmonary disease) Status: Chronic Plan: Impression: Distant breath sounds on exam 05/03 without evidence of wheezing. -Will provide incentive spirometry while in hospital -Will monitor O2/RR (5) FEN/GI/PPx Status: Acute Plan: -Hold anticoagulation due to hx of easy bleeding; will give SCD's -IVF as above -Regular diet as tolerated -PPI as above -OOB as tolerated -Zofran for nausea as above (James Warren MD, R3) Problem Qualifiers (1) GERD (gastroesophageal reflux disease): Qualified Codes: K21.9 - Gastro-esophageal reflux disease without esophagitis (2) COPD (chronic obstructive pulmonary disease): Qualified Codes: J44.9 - Chronic obstructive pulmonary disease, unspecified James Warren MD, R3 May 03, 2017 15:23 Dwayne Loza MD May 03, 2017 17:34
[2017-05-03 15:50] VITALS: BP 118/69; PULSE 71; RESP 20; TEMP 98.6; O2SAT 93
[2017-05-03 20:00] VITALS: BP 118/75; PULSE 66; RESP 16; TEMP 98.5; O2SAT 98
[2017-05-04] VITALS (7 sets, daily range): BP systolic 122–130; BP diastolic 70–80; PULSE 61–74; RESP 16–20; TEMP 96–98.5; O2SAT 90–98
[2017-05-04] MEDS: ONDANSETRON HCL 4 MG/2 ML VIAL IV PRN ×2 (02:22→06:57)
[2017-05-04] MEDS: AMPICILLIN-SULBACTAM INJ 3 GM in SODIUM CHLORIDE 0.9% INJ 100 ML IV SCH ×4 (05:20→22:40)
[2017-05-04] MEDS: SODIUM CHLORIDE 0.9% FLUSH 10 ML FLUSH IV FLUSH SCH ×2 (09:00→20:37)
[2017-05-04 09:33] LABS: AUTOMATED NEUTROPHIL # 3.5 TH/MM3 (1.8-7.7); BASOPHIL % 0.2 % (0.0-2.0); EOSINOPHIL % 0.9 % (0.0-4.0); HEMATOCRIT 35.7 % (39.0-51.0); HEMO FLAGS DIFF FINAL; LYMPH % 8.6 % (9.0-44.0); LYMPHOCYTE # 0.4 TH/MM3 (1.0-4.8); MEAN CELL VOLUME 93.7 FL (80.0-100.0); MEAN CORPUSCULAR HEMOGLOBIN 31.9 PG (27.0-34.0); MONO % 7.2 % (0.0-8.0); NEUT % 83.1 % (16.0-70.0); PLATELET COUNT 131 TH/MM3 (150-450); RED BLOOD COUNT 3.81 MIL/MM3 (4.50-5.90); RED CELL DISTRIBUTION WIDTH 14.3 % (11.6-17.2); WHITE BLOOD COUNT 4.2 TH/MM3 (4.0-11.0)
[2017-05-04 09:56] LABS: ANION GAP 8 MEQ/L (5-15); AST (GOT) 19 U/L (15-37); BICARBONATE 27.2 MEQ/L (21.0-32.0); BLOOD UREA NITROGEN 9 MG/DL (7-18); CHLORIDE 99 MEQ/L (98-107); GLOMERULAR FILTRATION RATE 105 ML/MIN (>89); POTASSIUM 4.4 MEQ/L (3.5-5.1); SODIUM (NA) 134 MEQ/L (136-145)
[2017-05-04 09:57] LABS: ALT (GPT) 18 U/L (12-78)
[2017-05-04 10:09] LABS: ALKALINE PHOSPHATASE 67 U/L (45-117); TOTAL BILIRUBIN ADULT 0.8 MG/DL (0.2-1.0)
--- NOTE | 2017-05-04 11:50 | HHI.FPPN ---
Subjective Remarks Except for an episode of low pulse ox to 90% on room air, patient has remained afebrile with vital signs stable overnight. He does report persistent nausea and vomiting overnight. He had 4 episodes of vomiting, which he describes as green with dark chunks of food. And then, he had dry heaves. He does report that his right upper quadrant pain is worse as a result of the vomiting. He otherwise denies any fever, chills, chest pain, shortness of breath. He reports that he had a bowel movement yesterday. (Cedric Prater MD R2) Objective Vitals Vital Signs Date Time Temp Pulse Resp B/P (MAP) Pulse Ox O2 Delivery O2 Flow Rate FiO2 05/04/17 11:04 94 05/04/17 07:30 97.0 61 20 123/71 (88) 90 05/04/17 04:00 98.5 64 18 122/75 (91) 97 05/04/17 02:52 16 05/04/17 00:00 98.2 68 16 130/77 (94) 98 05/03/17 22:31 16 05/03/17 20:00 98.5 66 16 118/75 (89) 98 05/03/17 15:50 98.6 71 20 118/69 (85) 93 I/O 05/03/17 05/03/17 05/03/17 05/04/17 05/04/17 05/04/17 07:00 15:00 23:00 07:00 15:00 23:00 Intake Total 0 ml 820 ml 580 ml 0 ml Output Total 550 ml 800 ml 600 ml 500 ml Balance -550 ml 20 ml -20 ml -500 ml Intake Oral 0 ml 720 ml 480 ml 0 ml IV Total 100 ml 100 ml Output Urine Total 550 ml 800 ml 600 ml 500 ml # Voids 1 (Cedric Prater MD R2) Result Diagram: 05/04/1782805/04/17828 Imaging Last Impressions Gall Bladder Ultrasound 05/02/17 0000 Signed Impressions: Service Date/Time: Tuesday, May 02, 2017 09:49 - CONCLUSION: 1. Gallbladder wall thickening with sludge. Additionally, health and wellness advisor reports a positive sonographic Valdez sign suggesting acute gallbladder inflammation. 2. Remainder of the examination demonstrates no significant abnormality. Anthony Troy MD Chest X-Ray 05/02/17 0000 Signed Impressions: Service Date/Time: Tuesday, May 02, 2017 10:28 - CONCLUSION: No acute cardiopulmonary abnormality is identified. Anthony Troy MD Objective Remarks GENERAL: This is a well-nourished, well-developed patient, in no apparent distress. SKIN: No rashes, ecchymoses or lesions. Cool and dry. No jaundice. EYES: Extraocular motions grossly intact. No scleral icterus. CARDIOVASCULAR: Regular rate and rhythm without murmurs. Normal peripheral perfusion RESPIRATORY: Clear to auscultation. Breath sounds equal bilaterally. No wheezes GASTROINTESTINAL: Abdomen soft, RUQ tenderness, nondistended. No guarding. Normal BS MUSCULOSKELETAL: Extremities without edema. No calf tenderness. NEUROLOGICAL: Awake and alert. Cranial nerves grossly intact. Motor and sensory function grossly within normal limits. (Cedric Prater MD R2) A/P Assessment and Plan 61 YO male w/ h/o COPD and HCV who presents with RUQ postprandial pain and bilious emesis with gallbladder ultrasound indicating biliary sludge w/o stones consistent with acute cholecystitis. Dr Ozuna () consulted who recommended IV antibiotics and cystectomy in 4-6 weeks. (Cedric Prater MD R2) Attending Attestation Pt. examined and case discussed with resident physicians. I have read the above note and agree with the assessment and plan as discussed with me. I was involved in all medical decision making for this patient. Dwayne Loza MD (Dwayne Loza MD) Problem List: (1) Acute cholecystitis ICD Codes: K81.0 - Acute cholecystitis Status: Acute Plan: Intermittent RUQ pain for 1 week, worse postprandial with associated nausea and bilious emesis. Dr Ozuna in gen surgery consulted and following recs -Unasyn 3g IV q6h -NS IVF @ 100ml/hr -Tylenol 650 mg q6h for fever -Zofran 4mg IV q6h for nausea did not work, so switched to Reglan 10 mg IV every 6 hours when necessary for nausea -No anticoagulation in case emergency surgery is indicated Pain control: -Percocet 5-325 PO q4h pain 1-5 -Morphine 2mg q3h pain 6-10 -Dilaudid for breakthrough pain (2) GERD (gastroesophageal reflux disease) ICD Codes: K21.9 - Gastro-esophageal reflux disease without esophagitis Status: Acute Plan: Symptomatic with acid reflux over the last week, likely exacerbated by emesis and stomach upset 2/2 cholecystitis -Continue protonix 40 mg/day (3) Hepatitis C ICD Codes: B19.20 - Hepatitis C Status: Chronic Plan: Impression: Pt reports HCV however states he has never been symptomatic or treated for the disease. No Hepatitis panel in EMR. Transaminases wnl on admission CMP -No intervention needed at this time (4) COPD (chronic obstructive pulmonary disease) ICD Codes: J44.9 - COPD (chronic obstructive pulmonary disease) Status: Chronic Plan: Impression: Distant breath sounds on exam 05/03 without evidence of wheezing. -Will provide incentive spirometry while in hospital -Will monitor O2/RR (5) FEN/GI/PPx Status: Acute Plan: -Hold anticoagulation due to hx of easy bleeding; will give SCD's -IVF as above -Regular diet as tolerated -PPI as above -OOB as tolerated -Reglan for nausea as above (Cedric Prater MD R2) Problem Qualifiers (1) GERD (gastroesophageal reflux disease): Qualified Codes: K21.9 - Gastro-esophageal reflux disease without esophagitis (2) COPD (chronic obstructive pulmonary disease): Qualified Codes: J44.9 - Chronic obstructive pulmonary disease, unspecified Cedric Prater MD R2 May 04, 2017 11:50 Dwayne Loza MD May 06, 2017 21:40
[2017-05-04] MEDS: METOCLOPRAMIDE HCL 10 MG/2 ML VIAL IV PRN ×2 (12:15→20:38)
[2017-05-04] MEDS: PANTOPRAZOLE SOD 40 MG DELAYED RELEASE TAB PO SCH (12:51)
[2017-05-04] MEDS: SODIUM CHLOR 0.9% 1000 ML INJ 1,000 ML IV SCH (13:42)
[2017-05-04] MEDS: ACETAMINOPHEN/HYDROcodone 325 MG/5 MG TAB PO PRN ×2 (17:30→21:36)
--- NOTE | 2017-05-04 17:49 | HHI.PR ---
Subjective Subjective Notes pt sitting up eating no nausea continues with pain though better Objective Vitals/I&O Vital Signs Date Time Temp Pulse Resp B/P (MAP) Pulse Ox O2 Delivery O2 Flow Rate FiO2 05/04/17 15:50 97.6 66 20 124/70 (88) 97 05/02/17 09:28 Room Air Labs Laboratory Tests Test 05/04/17 08:29 White Blood Count 4.2 Red Blood Count 3.81 Hemoglobin 12.1 Hematocrit 35.7 Mean Corpuscular Volume 93.7 Mean Corpuscular Hemoglobin 31.9 Mean Corpuscular Hemoglobin Concent 34.0 Red Cell Distribution Width 14.3 Platelet Count 131 Mean Platelet Volume 8.2 Neutrophils (%) (Auto) 83.1 Lymphocytes (%) (Auto) 8.6 Monocytes (%) (Auto) 7.2 Eosinophils (%) (Auto) 0.9 Basophils (%) (Auto) 0.2 Neutrophils # (Auto) 3.5 Lymphocytes # (Auto) 0.4 Monocytes # (Auto) 0.3 Eosinophils # (Auto) 0.0 Basophils # (Auto) 0.0 CBC Comment DIFF FINAL Differential Comment Blood Urea Nitrogen 9 Creatinine 0.76 Random Glucose 110 Total Protein 7.3 Albumin 2.9 Calcium Level 8.5 Alkaline Phosphatase 67 Aspartate Amino Transf (AST/SGOT) 19 Alanine Aminotransferase (ALT/SGPT) 18 Total Bilirubin 0.8 Sodium Level 134 Potassium Level 4.4 Chloride Level 99 Carbon Dioxide Level 27.2 Anion Gap 8 Estimat Glomerular Filtration Rate 105 Date/Time Source Procedure Growth Status 05/02/17 21:38 Blood Peripheral Aerobic Blood Culture - Preliminary NO GROWTH IN 2 DAYS Resulted 05/02/17 21:38 Blood Peripheral Anaerobic Blood Culture - Preliminary NO GROWTH IN 2 DAYS Resulted Radiology Last Impressions Gall Bladder Ultrasound 05/02/17 0000 Signed Impressions: Service Date/Time: Tuesday, May 02, 2017 09:49 - CONCLUSION: 1. Gallbladder wall thickening with sludge. Additionally, captain cannery tender reports a positive sonographic Valdez sign suggesting acute gallbladder inflammation. 2. Remainder of the examination demonstrates no significant abnormality. Anthony Troy MD Chest X-Ray 05/02/17 0000 Signed Impressions: Service Date/Time: Tuesday, May 02, 2017 10:28 - CONCLUSION: No acute cardiopulmonary abnormality is identified. Anthony Troy MD Narrative Exam ABD soft mild tenderness RUQ A/P Assessment and Plan Cholecystitis responding to medical management cont current course can be followed as a out pt Benji Peguero MD May 04, 2017 17:49
[2017-05-05] MEDS: SODIUM CHLOR 0.9% 1000 ML INJ 1,000 ML IV SCH
[2017-05-05 00:35] VITALS: BP 138/78; PULSE 66; RESP 16; TEMP 96.8; O2SAT 94
[2017-05-05] MEDS: ACETAMINOPHEN/HYDROcodone 325 MG/5 MG TAB PO PRN ×2 (01:53→10:22)
[2017-05-05 04:35] VITALS: BP 111/67; PULSE 61; RESP 17; TEMP 96.8; O2SAT 94
[2017-05-05] MEDS: AMPICILLIN-SULBACTAM INJ 3 GM in SODIUM CHLORIDE 0.9% INJ 100 ML IV SCH ×2 (04:49→10:22)
[2017-05-05 08:00] VITALS: BP 132/80; PULSE 54; RESP 16; TEMP 96.5; O2SAT 95
[2017-05-05] MEDS: METOCLOPRAMIDE HCL 10 MG/2 ML VIAL IV PRN (08:48)
[2017-05-05] MEDS: SODIUM CHLORIDE 0.9% FLUSH 10 ML FLUSH IV FLUSH SCH (08:48)
[2017-05-05] MEDS: PANTOPRAZOLE SOD 40 MG DELAYED RELEASE TAB PO SCH (08:48)
[2017-05-05 09:59] LABS: BICARBONATE 26.4 MEQ/L (21.0-32.0)
--- NOTE | 2017-05-05 10:11 | HHI.FPPN ---
Subjective Remarks No acute events overnight. Except for some low pulse ox 94% on room air, patient has remained afebrile with vital signs stable overnight. He reports decreasing right upper quadrant pain. He still reports some nausea with eating, but reports that the Reglan helps. He reports that he has had bowel movements. Patient reports that he is ready for discharge. He understands the importance of taking the antibiotics as prescribed and follow up with surgery as instructed. (Cedric Prater MD R2) Objective Vitals Vital Signs Date Time Temp Pulse Resp B/P (MAP) Pulse Ox O2 Delivery O2 Flow Rate FiO2 05/05/17 08:00 96.5 54 16 132/80 (97) 95 05/05/17 04:35 96.8 61 17 111/67 (82) 94 05/05/17 02:53 16 05/05/17 00:35 96.8 66 16 138/78 (98) 94 05/04/17 20:40 97.0 74 17 129/80 (96) 94 05/04/17 15:50 97.6 66 20 124/70 (88) 97 05/04/17 11:50 96.0 66 20 124/80 (95) 96 05/04/17 11:04 94 I/O 05/04/17 05/04/17 05/04/17 05/05/17 05/05/17 05/05/17 07:00 15:00 23:00 07:00 15:00 23:00 Intake Total 0 ml 2763 ml 240 ml Output Total 500 ml 100 ml 300 ml Balance -500 ml 2663 ml -60 ml Intake Oral 0 ml 60 ml 240 ml IV Total 2703 ml Output Urine Total 500 ml 100 ml 300 ml # Voids 2 2 # Bowel Movements 2 (Cedric Prater MD R2) Result Diagram: 05/04/17 0829 05/05/17 0915 Imaging Last Impressions Gall Bladder Ultrasound 05/02/17 0000 Signed Impressions: Service Date/Time: Tuesday, May 02, 2017 09:49 - CONCLUSION: 1. Gallbladder wall thickening with sludge. Additionally, quartz cutter reports a positive sonographic Valdez sign suggesting acute gallbladder inflammation. 2. Remainder of the examination demonstrates no significant abnormality. Anthony Troy MD Chest X-Ray 05/02/17 0000 Signed Impressions: Service Date/Time: Tuesday, May 02, 2017 10:28 - CONCLUSION: No acute cardiopulmonary abnormality is identified. Anthony Troy MD Objective Remarks GENERAL: This is a well-nourished, well-developed patient, in no apparent distress. SKIN: No rashes, ecchymoses or lesions. Cool and dry. No jaundice. EYES: Extraocular motions grossly intact. No scleral icterus. CARDIOVASCULAR: Regular rate and rhythm without murmurs. Normal peripheral perfusion RESPIRATORY: Clear to auscultation. Breath sounds equal bilaterally. No wheezes GASTROINTESTINAL: Abdomen soft, much less almost no RUQ tenderness, nondistended. No guarding. Normal BS MUSCULOSKELETAL: Extremities without edema. No calf tenderness. NEUROLOGICAL: Awake and alert. Cranial nerves grossly intact. Motor and sensory function grossly within normal limits. (Cedric Prater MD R2) A/P Assessment and Plan 61 YO male w/ h/o COPD and HCV who presents with RUQ postprandial pain and bilious emesis with gallbladder ultrasound indicating biliary sludge w/o stones consistent with acute cholecystitis. Dr Ozuna () consulted who recommended IV antibiotics and cystectomy in 4-6 weeks. Discharge Planning Anticipate discharge today given that his pain is better, he is tolerating by mouth, and going to the bathroom area (Cedric Prater MD R2) Attending Attestation Patient seen and examined. Case reviewed and discussed with the resident team. Agree with plan of care as discussed with me and documented in the resident note. saw him prior to D/C and he was ready to go. his pain was well controlled and he will get surgery as an outpt. he will follow up with with his surgeon (Billie Iqbal MD) Problem List: (1) Acute cholecystitis ICD Codes: K81.0 - Acute cholecystitis Status: Acute Plan: Intermittent RUQ pain for 1 week, worse postprandial with associated nausea and bilious emesis. Dr Ozuna in gen surgery consulted and following recs -Unasyn 3g IV q6h; discharge on 7 day course of Cipro and Flagyl -NS IVF @ 100ml/hr -Tylenol 650 mg q6h for fever -Zofran 4mg IV q6h for nausea did not work, so switched to Reglan 10 mg IV every 6 hours when necessary for nausea; discharged with these medications -No anticoagulation in case emergency surgery is indicated Pain control: Discharge with [facility] -Percocet 5-325 PO q4h pain 1-5 -Morphine 2mg q3h pain 6-10 -Dilaudid for breakthrough pain (2) GERD (gastroesophageal reflux disease) ICD Codes: K21.9 - Gastro-esophageal reflux disease without esophagitis Status: Acute Plan: Symptomatic with acid reflux over the last week, likely exacerbated by emesis and stomach upset 2/2 cholecystitis -Continue protonix 40 mg/day (3) Hepatitis C ICD Codes: B19.20 - Hepatitis C Status: Chronic Plan: Impression: Pt reports HCV however states he has never been symptomatic or treated for the disease. No Hepatitis panel in EMR. Transaminases wnl on admission CMP -No intervention needed at this time (4) COPD (chronic obstructive pulmonary disease) ICD Codes: J44.9 - COPD (chronic obstructive pulmonary disease) Status: Chronic Plan: Impression: Distant breath sounds on exam 05/03 without evidence of wheezing. -Will provide incentive spirometry while in hospital -Will monitor O2/RR (5) FEN/GI/PPx Status: Acute Plan: -Hold anticoagulation due to hx of easy bleeding; will give SCD's -IVF as above -Regular diet as tolerated -PPI as above -OOB as tolerated -Reglan for nausea as above (Cedric Prater MD R2) Problem Qualifiers (1) GERD (gastroesophageal reflux disease): Qualified Codes: K21.9 - Gastro-esophageal reflux disease without esophagitis (2) COPD (chronic obstructive pulmonary disease): Qualified Codes: J44.9 - Chronic obstructive pulmonary disease, unspecified Cedric Prater MD R2 May 05, 2017 10:11 Billie Iqbal MD May 05, 2017 16:36
[2017-05-05] MEDS ORDERED: METR-1 PO (10:23)
[2017-05-05] MEDS ORDERED: CIPR-9 PO (10:23)
[2017-05-05] MEDS ORDERED: NORC5TAB PO (10:23)
--- NOTE | 2017-05-05 10:24 | HHI.PR ---
Subjective Subjective Notes Pain is improving. He is tolerating diet. Objective Vitals/I&O Vital Signs Date Time Temp Pulse Resp B/P (MAP) Pulse Ox O2 Delivery O2 Flow Rate FiO2 05/05/17 08:00 96.5 54 16 132/80 (97) 95 05/02/17 09:28 Room Air Labs Laboratory Tests Test 05/04/17 22:42 05/05/17 09:15 Nasal Screen MRSA (PCR) MRSA NOT DETECTED Blood Urea Nitrogen 7 Creatinine 0.75 Random Glucose 118 Calcium Level 8.8 Sodium Level 137 Potassium Level 4.0 Chloride Level 103 Carbon Dioxide Level 26.4 Anion Gap 8 Estimat Glomerular Filtration Rate 107 Date/Time Source Procedure Growth Status 05/02/17 21:38 Blood Peripheral Aerobic Blood Culture - Preliminary NO GROWTH IN 2 DAYS Resulted 05/02/17 21:38 Blood Peripheral Anaerobic Blood Culture - Preliminary NO GROWTH IN 2 DAYS Resulted Radiology Last Impressions Gall Bladder Ultrasound 05/02/17 0000 Signed Impressions: Service Date/Time: Tuesday, May 02, 2017 09:49 - CONCLUSION: 1. Gallbladder wall thickening with sludge. Additionally, rn new graduate reports a positive sonographic Valdez sign suggesting acute gallbladder inflammation. 2. Remainder of the examination demonstrates no significant abnormality. Anthony Troy MD Chest X-Ray 05/02/17 0000 Signed Impressions: Service Date/Time: Tuesday, May 02, 2017 10:28 - CONCLUSION: No acute cardiopulmonary abnormality is identified. Anthony Troy MD Narrative Exam NAD, appears comfortable in bed Abd: soft, mild RUQ ttp A/P Assessment and Plan 61 yo M with acute cholecystitis x 1 week Clear for discharge from my standpoint. Rx for cipro/flagyl/lortab on chart. F/ u in 2 weeks. Low fat diet. Mckinley Ozuna MD May 05, 2017 10:24
--- NOTE | 2017-05-05 11:08 | HHI.DCPOC ---
Discharge Care Plan Diagnosis: (1) Acute cholecystitis Goals to Promote Your Health * To prevent worsening of your condition and complications, please take medications as prescribed and follow up with a general surgeon. * To maintain your health at the optimal level, please follow up with your primary care doctor. Directions to Meet Your Goals Take your medications as prescribed Follow your dietary instruction Follow activity as directed Keep your appointments as scheduled Take your immunizations and boosters as scheduled If your symptoms worsen call your PCP, if no PCP go to Urgent Care Center or Emergency Room Smoking is Dangerous to Your Health. Avoid second hand smoke Call the 24-hour hour crisis hotline for domestic abuse at Cedric Prater MD R2 May 05, 2017 11:08
[2017-05-05] MEDS ORDERED: ZOFR4TAB PO (12:03)
[2017-05-05] MEDS ORDERED: REGL10TA5 PO (12:03)
--- NOTE | 2017-05-05 14:57 | HHI.DS ---
Discharge Summary Admission Date May 02, 2017 at 10:58 Discharge Date: May 05, 2017 Admitting Diagnosis acute cholecystitis, COPD (1) Acute cholecystitis Diagnosis: Principal Plan: Intermittent RUQ pain for 1 week, worse postprandial with associated nausea and bilious emesis. Dr Ozuna in gen surgery consulted and following recs -Unasyn 3g IV q6h; discharge on 7 day course of Cipro and Flagyl -NS IVF @ 100ml/hr -Tylenol 650 mg q6h for fever -Zofran 4mg IV q6h for nausea did not work, so switched to Reglan 10 mg IV every 6 hours when necessary for nausea; discharged with these medications -No anticoagulation in case emergency surgery is indicated Pain control: Discharge with [place] -Percocet 5-325 PO q4h pain 1-5 -Morphine 2mg q3h pain 6-10 -Dilaudid for breakthrough pain ICD Codes: K81.0 - Acute cholecystitis Status: Acute (2) GERD (gastroesophageal reflux disease) Diagnosis: Secondary Plan: Symptomatic with acid reflux over the last week, likely exacerbated by emesis and stomach upset 2/2 cholecystitis -Continue protonix 40 mg/day ICD Codes: K21.9 - Gastro-esophageal reflux disease without esophagitis Status: Acute (3) Hepatitis C Diagnosis: Secondary Plan: Impression: Pt reports HCV however states he has never been symptomatic or treated for the disease. No Hepatitis panel in EMR. Transaminases wnl on admission CMP -No intervention needed at this time ICD Codes: B19.20 - Hepatitis C Status: Chronic (4) COPD (chronic obstructive pulmonary disease) Diagnosis: Secondary Plan: Impression: Distant breath sounds on exam 05/03 without evidence of wheezing. -Will provide incentive spirometry while in hospital -Will monitor O2/RR ICD Codes: J44.9 - COPD (chronic obstructive pulmonary disease) Status: Chronic (5) FEN/GI/PPx Diagnosis: Secondary Plan: -Hold anticoagulation due to hx of easy bleeding; will give SCD's -IVF as above -Regular diet as tolerated -PPI as above -OOB as tolerated -Reglan for nausea as above Status: Acute Consultants Gen. surgery Brief History Mr Castaneda is a 61 YO male w/PMHx COPD, GERD, IVDU and HCV who presents with 1 wk RUQ pain and bilious emesis each time he ate and acid reflux of 1 wk. He reports RUQ stabbing pain radiating to his right upper back that is 9/10 on pain scale and often doubles him over. Pain comes and goes, is sharp and stabbing, and most often occurs after a meal in which he describes feeling full after only a few bites, followed by bilious, non-bloody emesis. He took Ibuprofen w/o relief and then was given Lortab by his sister that reduced the pain. He is a former smoker who coughs at night. He reports feeling feverish earlier in the week with chills and night sweats. Pt takes no medications and does not have a PCP. He denies any alcohol ingestion. He denies previous abdominal surgeries, diarrhea, bloody or black tarry stools, CP, SOB, dizziness , and DVT pain; however he reports being an easy bleeder without epistaxis. CBC/BMP: 05/04/17 0829 05/05/17 0915 Significant Findings Laboratory Tests Test 05/03/17 08:26 05/04/17 08:29 05/04/17 22:42 05/05/17 09:15 Red Blood Count 4.00 MIL/MM3 (4.50-5.90) 3.81 MIL/MM3 (4.50-5.90) Hematocrit 37.8 % (39.0-51.0) 35.7 % (39.0-51.0) Platelet Count 146 TH/MM3 (150-450) 131 TH/MM3 (150-450) Neutrophils (%) (Auto) 77.6 % (16.0-70.0) 83.1 % (16.0-70.0) Monocytes (%) (Auto) 8.2 % (0.0-8.0) Lymphocytes # (Auto) 0.8 TH/MM3 (1.0-4.8) 0.4 TH/MM3 (1.0-4.8) Random Glucose 72 MG/DL (74-106) 110 MG/DL (74-106) 118 MG/DL (74-106) Sodium Level 135 MEQ/L (136-145) 134 MEQ/L (136-145) Hemoglobin 12.1 GM/DL (13.0-17.0) Lymphocytes (%) (Auto) 8.6 % (9.0-44.0) Albumin 2.9 GM/DL (3.4-5.0) Imaging Last Impressions Gall Bladder Ultrasound 05/02/17 0000 Signed Impressions: Service Date/Time: Tuesday, May 02, 2017 09:49 - CONCLUSION: 1. Gallbladder wall thickening with sludge. Additionally, line haul driver reports a positive sonographic Valdez sign suggesting acute gallbladder inflammation. 2. Remainder of the examination demonstrates no significant abnormality. Anthony Troy MD Chest X-Ray 05/02/17 Signed Impressions: Service Date/Time: Tuesday, May 02, 2017 10:28 - CONCLUSION: No acute cardiopulmonary abnormality is identified. Anthony Troy MD PE at Discharge GENERAL: This is a well-nourished, well-developed patient, in no apparent distress. SKIN: No rashes, ecchymoses or lesions. Cool and dry. No jaundice. EYES: Extraocular motions grossly intact. No scleral icterus. CARDIOVASCULAR: Regular rate and rhythm without murmurs. Normal peripheral perfusion RESPIRATORY: Clear to auscultation. Breath sounds equal bilaterally. No wheezes GASTROINTESTINAL: Abdomen soft, much less almost no RUQ tenderness, nondistended. No guarding. Normal BS MUSCULOSKELETAL: Extremities without edema. No calf tenderness. NEUROLOGICAL: Awake and alert. Cranial nerves grossly intact. Motor and sensory function grossly within normal limits. Hospital Course Patient was admitted for acute cholecystitis. General surgery was consulted and recommended IV antibiotics with IV Unasyn and outpatient cholecystectomy in 4-6 weeks. Patient's pain and nausea were controlled with medications. His pain, nausea, and ability to tolerate by mouth improved throughout the admission until patient felt well enough and was tolerating by mouth well enough for discharge on oral antibiotics with a seven-day course of Cipro and Flagyl. Patient was instructed to follow-up with Gen. surgery for outpatient cholecystectomy. Pt Condition on Discharge: Good Discharge Disposition: Discharge Home Discharge Instructions DIET: Follow Instructions for: As Tolerated, No Restrictions, Low Fat Diet Activities you can perform: Regular-No Restrictions Follow up Referrals: PCP Follow-up - 1 Week Surgical - 2 Weeks with Mckinley Ozuna MD New Medications: Ciprofloxacin (Cipro) 500 Mg Tab 500 MG PO BID for Infection, #14 TAB 0 Refills Hydrocodone-Acetaminophen ([place]) 5-325 mg Tab 1 TAB PO Q6H PRN for PAIN, #25 TAB 0 Refills Metoclopramide (Reglan) 10 Mg Tab 10 MG PO QID PRN for nausea, #30 TAB 0 Refills Metronidazole (Flagyl) 500 Mg Tab 500 MG PO TID for Infection, #21 TAB 0 Refills Ondansetron (Zofran) 4 Mg Tab 4 MG PO Q6HR PRN for NAUSEA OR VOMITING, #30 TAB 0 Refills Cedric Prater MD R2 May 05, 2017 14:57
== END 2017-05-05 12:56 | disposition home or self-care (01) | DRG 446 ==
LOC: NEPD 09:27 → NEDA 10:58 → HOCB 15:15
PROVIDERS: ADMIT Family Medicine; ATTEND Family Medicine
DX: K81.0 Acute cholecystitis (principal); J44.9 Chronic obstructive pulmonary disease, unspecified; K21.9 Gastro-esophageal reflux disease without esophagitis; B19.20 Unspecified viral hepatitis C without hepatic coma; Z87.891 Personal history of nicotine dependence; G43.909 Migraine, unspecified, not intractable, without status migrainosus
CPT/HCPCS: 71010; 76705; 80048; 80053; 81001; 83690; 85025; 85610; 85730; 87040; 87641; 93005; 94150; 96361; 96374; 96375; J0295; J1170; J2270; J2405; J2765; J7030

== ENCOUNTER 2017-06-08 19:54 | Inpatient (IN) | payer OTHER ==
[~2017-06-08] VITALS: Ht 167.6 cm; Wt 64.0 kg
[~2017-06-08 19:54] MED LIST changes: +CIPR-9 PO; -DIPH2%T PO; +METR-1 PO; +NORC5TAB PO; +REGL10TA5 PO; +ZOFR4TAB PO
[2017-06-08 19:56] VITALS: BP 137/87; PULSE 83; RESP 16; TEMP 98.5; O2SAT 96
--- NOTE | 2017-06-08 22:20 | PD ---
HPI Chief Complaint: Abdominal Pain Time Seen by Provider: 22:10 Travel History International Travel<30 days: No Contact w/Intl Traveler<30days: No Traveled to known affect area: No History of Present Illness HPI The patient is an 61 year old male who presents to the [facility] [address] emergency department with a history of abdominal pain that began again at 4:30PM. He last ate at 12:30 PM. He reports having n/v x2. He denies having any diarrhea. His last BM was earlier today. The pain is in the right upper quadrant of the abdomen. It radiates to his back. He has a dry cough that began earlier today. He reports having chest pain with this. He denies having a stress test. The patient reports that all the symptoms are similar to what he experienced when he was admitted to the hospital and diagnosed with acute cholecystitis from May [address] Ozuna, the general surgeon did see him in the hospital. The patient was started on IV antibiotic and then discharged home on Cipro and Flagyl. The patient completed the course of antibiotic. He did follow-up with Dr. Ozuna at the beginning of May and it was recommended that he follow a strict diet and report back on June 17. The patient reports that at that time he was uninsured. He reports that since then he has qualified for patient assistance. He was told that a few develops a recurrence of abdominal pain he should call Dr. Ozuna's office. He did call, however the office was closed. He then decided to come to the emergency department. On review of systems otherwise, the patient denies any recent fevers, neck pain, shortness of breath, diarrhea, urinary symptoms, or neurologic symptoms. He quit smoking 3 years ago. [facility] Past Medical History Narrative Medical The patient's past medical history is significant for COPD, Acid reflux, IVDU- last used 1989, GERD, Hepatitis C. Asthma: No Blood Disorders: Yes (hypotysis today) Heart Rhythm Problems: No Cancer: No Cardiovascular Problems: No High Cholesterol: No Chemotherapy: No Chest Pain: No Congestive Heart Failure: No COPD: Yes (emphysema, bronchitis since childhood) Cerebrovascular Accident: No Diabetes: No Endocrine: No Gastrointestinal Disorders: Yes (Hepatitis C) GERD: No Genitourinary: No Headaches: Yes Hepatitis: No Hiatal Hernia: No Immune Disorder: No Neurologic: No Psychiatric: No Reproductive: No Respiratory: Yes Migraines: Yes Radiation Therapy: No Seizures: No Sleep Apnea: No Thyroid Disease: No Ulcer: No Past Surgical History Narrative Surgical The patient's past surgical history is significant for right hip surgery as a child. Abdominal Surgery: No Appendectomy: No Cardiac Surgery: No Cholecystectomy: No Ear Surgery: No Endocrine Surgery: No Eye Surgery: No Genitourinary Surgery: No Gynecologic Surgery: No Oral Surgery: No Thoracic Surgery: No Other Surgery: Yes (ortho surgery to rt hip) Social History Alcohol Use: No Tobacco Use: No Substance Use: No Allergies-Medications (Allergen,Severity, Reaction): Coded Allergies: prednisone (Unverified Allergy, Severe, Irritability/Anxiety, 06/08/17) PT STATES HE FELT LIKE JUMPING OUT OF THE WINDOW WHEN HE TOOK PREDNISONE LAST *MDRO Multi-Drug Resistant Organism (Unverified Adverse Reaction, Unknown , 06/08/17) MRSA 2009 MRSA and wound Reported Meds & Prescriptions Reported Meds & Active Scripts Active No Active Prescriptions or Reported Medications Review of Systems Except as stated in HPI: all other systems reviewed are Neg General / Constitutional: No: Fever Eyes: No: Visual changes HENT: No: Headaches Cardiovascular: Positive: Chest Pain or Discomfort, No: Dyspnea on exertion Respiratory: No: Shortness of Breath Gastrointestinal: Positive: Nausea, Vomiting, Abdominal Pain, No: Diarrhea, Hematemesis, Hematochezia, Changes in Bowel Habits, Loss of Appetite Genitourinary: No: Dysuria Musculoskeletal: No: Pain Skin: No Rash Neurologic: No: Weakness Psychiatric: No: Depression Endocrine: No: Polydipsia Hematologic/Lymphatic: No: Easy Bruising Physical Exam Narrative General: The patient is a well-developed well-nourished male in no acute distress. Head and Neck exam: Head is normocephalic atraumatic. Eyes: EOMI, pupils are equal round and reactive to light. Nose: Midline septum with pink mucous membranes Mouth: Dentition unremarkable. Moist mucus membranes. Posterior oropharynx is not erythematous. No tonsillar hypertrophy. Uvula midline. Airway patent. Neck: No palpable lymphadenopathy. No nuchal rigidity. No thyromegaly. Cardiovascular: Regular rate and rhythm without murmurs, gallops, or rubs. Lungs: Clear to auscultation bilaterally. No wheezes, rhonchi, or rales. Abdomen: Soft, with tenderness on palpation in the right upper quadrant of the abdomen, no other tenderness on palpation of the other quadrants of the abdomen. The patient has a positive Valdez sign. The patient has no tenderness on palpation over McBurney's point. No guarding, rebound, or rigidity. Normal bowel sounds are audible. Extremities: No clubbing, cyanosis, or edema. 2+ pulses in all 4 extremities. No calf tenderness on palpation. Back: No spinous process tenderness to palpation. No costovertebral angle tenderness to palpation. Neurologic Exam: Grossly nonfocal. Skin Exam: No rash noted. Intact skin that is warm and dry. Data Data Last Documented VS Vital Signs Date Time Temp Pulse Resp B/P (MAP) Pulse Ox O2 Delivery O2 Flow Rate FiO2 06/08/17 22:21 98 Room Air 06/08/17 19:56 98.5 83 16 Orders Orders Electrocardiogram (06/08/17 22:14) Complete Blood Count With Diff (06/08/17 22:14) Comprehensive Metabolic Panel (06/08/17 22:14) Troponin I (06/08/17 22:14) C-Reactive Protein (Crp) (06/08/17 22:14) Lipase (06/08/17 22:14) Urinalysis - C+S If Indicated (06/08/17 22:14) Magnesium (Mg) (06/08/17 22:14) Iv Access Insert/Monitor (06/08/17 22:14) Ecg Monitoring (06/08/17 22:14) Oximetry (06/08/17 22:14) Lactic Acid Sepsis Protocol (06/08/17 22:14) Sodium Chlorid 0.9% 500 Ml Inj (Ns 500 M (06/08/17 23:00) Ondansetron Inj (Zofran Inj) (06/08/17 23:00) Hydromorphone Pf Inj (Dilaudid Pf Inj) (06/08/17 23:00) Admit Order (Ed Use Only) (06/09/17 00:31) Piperacil-Tazo 3.375 Gm Premix (Zosyn 3. (06/09/17 00:45) Place In Observation (06/09/17 ) Vital Signs (Adult) Q4H (06/09/17 01:01) Activity Oob With Assistance (06/09/17 01:01) Operations Administrator / Telemetry .CONTINUOUS (06/09/17 01:01) Diet Npo (06/09/17 Breakfast) Sodium Chloride 0.9% Flush (Ns Flush) (06/09/17 01:15) Sodium Chloride 0.9% Flush (Ns Flush) (06/09/17 09:00) Case Management Consult (06/09/17 01:01) Naloxone Inj (Narcan Inj) (06/09/17 01:15) Labs Laboratory Tests Test 06/08/17 22:20 06/08/17 22:30 06/08/17 22:43 White Blood Count 6.0 TH/MM3 Red Blood Count 4.63 MIL/MM3 Hemoglobin 14.5 GM/DL Hematocrit 42.4 % Mean Corpuscular Volume 91.5 FL Mean Corpuscular Hemoglobin 31.2 PG Mean Corpuscular Hemoglobin Concent 34.1 % Red Cell Distribution Width 14.1 % Platelet Count 105 TH/MM3 Mean Platelet Volume 9.7 FL Neutrophils (%) (Auto) 80.1 % Lymphocytes (%) (Auto) 10.6 % Monocytes (%) (Auto) 8.4 % Eosinophils (%) (Auto) 0.5 % Basophils (%) (Auto) 0.4 % Neutrophils # (Auto) 4.8 TH/MM3 Lymphocytes # (Auto) 0.6 TH/MM3 Monocytes # (Auto) 0.5 TH/MM3 Eosinophils # (Auto) 0.0 TH/MM3 Basophils # (Auto) 0.0 TH/MM3 CBC Comment DIFF FINAL Differential Comment Blood Urea Nitrogen 16 MG/DL Creatinine 0.79 MG/DL Random Glucose 114 MG/DL Total Protein 8.6 GM/DL Albumin 4.2 GM/DL Calcium Level 9.7 MG/DL Magnesium Level 2.0 MG/DL Alkaline Phosphatase 105 U/L Aspartate Amino Transf (AST/SGOT) 45 U/L Alanine Aminotransferase (ALT/SGPT) 55 U/L Total Bilirubin 1.0 MG/DL Sodium Level 133 MEQ/L Potassium Level 4.0 MEQ/L Chloride Level 100 MEQ/L Carbon Dioxide Level 28.2 MEQ/L Anion Gap 5 MEQ/L Estimat Glomerular Filtration Rate 100 ML/MIN Troponin I LESS THAN 0.02 NG/ML C-Reactive Protein 0.88 MG/DL Lipase 49 U/L Lactic Acid Level 1.0 mmol/L Urine Color YELLOW Urine Turbidity CLEAR Urine pH 7.0 Urine Specific Lando 1.021 Urine Protein NEG mg/dL Urine Glucose (UA) NEG mg/dL Urine Ketones 10 mg/dL Urine Occult Blood NEG Urine Nitrite NEG Urine Bilirubin NEG Urine Urobilinogen LESS THAN 2.0 MG/DL Urine Leukocyte Esterase NEG Urine RBC LESS THAN 1 /hpf Urine WBC LESS THAN 1 /hpf Urine Amorphous Sediment RARE Urine Mucus FEW /lpf Microscopic Urinalysis Comment CULT NOT INDICATED MDM Medical Decision Making Medical Screen Exam Complete: Yes Emergency Medical Condition: Yes Medical Record Reviewed: Yes Interpretation(s) Last Impressions Abdomen Ultrasound 06/09/17 0000 Signed Impressions: Service Date/Time: Friday, June 09, 2017 16:11 - CONCLUSION: 1. Mild splenomegaly. 2. No acute abnormality. Modesto Das Jr., MD Differential Diagnosis Acute cholecystitis, versus biliary colic, versus acute pancreatitis Narrative Course During the course of the patients emergency department visit, the patients history, examination, and differential diagnosis were reviewed with the patient. The patient had IV access obtained and blood work sent for analysis. 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 An ECG was ordered. The patient had an EKG done that shows a normal sinus rhythm heart rate is 75, no acute ST segment elevation or depression. The patient was initially provided normal saline IV fluids, Zofran for nausea, hydromorphone 0.2 mg IV. The patients laboratory studies were reviewed and remarkable for a white count of 6, hemoglobin 14.5, platelets 105 with 80.1 neutrophils, monocytes 8.4, CMP is normal for sodium of 133, glucose 114, AST 45, troponin I less than 0.02, C- reactive protein 0.88, lipase 49, urinalysis shows 10 ketones otherwise unremarkable. The patient's case is discussed with Dr. Avery, the covering surgeon for Dr. Ozuna. He recommended that the patient be admitted to the hospitalist service and that Dr. Ozuna be consulted in the morning. The patients results were discussed with the patient, including the plan of care. I explained that further testing and/ or monitoring is indicated based on the patients history, examination, and/ or laboratory findings. Therefore, I recommended admission for additional evaluation. The patient expressed understanding and was agreeable with this plan. The patient was admitted to the hospital in stable condition and sent to a bed under the care of the [facility] Hospitalist service.. Physician Communication Physician Communication The patient's case is discussed with Dr. avery as stated above in the ED course. The patient's case is discussed with Dr. Garcia who did agree to admit the patient for further evaluation and treatment at this time. Admitting Information Admitting Physician Requests: Admit Scripts No Active Prescriptions or Reported Meds Abby Hayden MD Jun 08, 2017 22:20
[2017-06-08 22:21] VITALS: O2SAT 98
[2017-06-08] MEDS ORDERED: HYDROmorphone HCL PF 0.5 MG/0.5 ML SYRINGE IV PUSH ONE (23:00)
[2017-06-08] MEDS ORDERED: SODIUM CHLORID 0.9% 500 ML INJ 500 ML IV ONE (23:00)
[2017-06-08] MEDS ORDERED: ONDANSETRON HCL 4 MG/2 ML VIAL IV PUSH ONE (23:00)
[2017-06-08 23:15] LABS: AUTOMATED NEUTROPHIL # 4.8 TH/MM3 (1.8-7.7); BASOPHIL % 0.4 % (0.0-2.0); EOSINOPHIL % 0.5 % (0.0-4.0); HEMATOCRIT 42.4 % (39.0-51.0); HEMOGLOBIN 14.5 GM/DL (13.0-17.0); LYMPH % 10.6 % (9.0-44.0); LYMPHOCYTE # 0.6 TH/MM3 (1.0-4.8); MEAN CELL VOLUME 91.5 FL (80.0-100.0); MEAN CORPUSCULAR HEMOGLOBIN 31.2 PG (27.0-34.0); MEAN CORPUSCULAR HGB CONC 34.1 % (32.0-36.0); MEAN PLATELET VOLUME 9.7 FL (7.0-11.0); MONO % 8.4 % (0.0-8.0); MONOCYTE # 0.5 TH/MM3 (0-0.9); NEUT % 80.1 % (16.0-70.0); PLATELET COUNT 105 TH/MM3 (150-450); RED BLOOD COUNT 4.63 MIL/MM3 (4.50-5.90); RED CELL DISTRIBUTION WIDTH 14.1 % (11.6-17.2)
[2017-06-08 23:17] LABS: AMORPHOUS SEDIMENT, URINE RARE; BILIRUBIN, URINE NEG (NEG); BLOOD, URINE NEG (NEG); GLUCOSE,URINE NEG (NEG); KETONE, URINE 10 mg/dL (NEG); MUCUS URINE FEW /lpf (OCC); NITRITE,URINE NEG (NEG); URINE COLOR YELLOW (YELLW/STRAW); URINE LEUKOCYTE ESTERASE NEG (NEG)
[2017-06-08 23:29] LABS: ALT (GPT) 55 U/L (12-78)
[2017-06-08 23:32] LABS: ALKALINE PHOSPHATASE 105 U/L (45-117); TOTAL PROTEIN 8.6 GM/DL (6.4-8.2); TROPONIN I LESS THAN 0.02 NG/ML (0.02-0.05)
[2017-06-08 23:37] LABS: ALBUMIN 4.2 GM/DL (3.4-5.0); AST (GOT) 45 U/L (15-37); BICARBONATE 28.2 MEQ/L (21.0-32.0); BLOOD UREA NITROGEN 16 MG/DL (7-18); C-REACTIVE PROTEIN 0.88 MG/DL (0.00-0.30); CALCIUM 9.7 MG/DL (8.5-10.1); CHLORIDE 100 MEQ/L (98-107); CREATININE 0.79 MG/DL (0.60-1.30); GLOMERULAR FILTRATION RATE 100 ML/MIN (>89); GLUCOSE,RANDOM 114 MG/DL (74-106); LIPASE 49 U/L (73-393); SODIUM (NA) 133 MEQ/L (136-145)
[2017-06-09] VITALS (7 sets, daily range): BP systolic 112–135; BP diastolic 65–80; PULSE 64–80; RESP 16–20; TEMP 97–98.6; O2SAT 93–96
[2017-06-09] MEDS ORDERED: PIPERACIL-TAZO 3.375 GM PREMIX 50 ML IV ONE (00:45)
[2017-06-09] MEDS ORDERED: SODIUM CHLORIDE 0.9% FLUSH 10 ML FLUSH IV FLUSH PRN ×2 (01:15→09:00)
[2017-06-09] MEDS ORDERED: HYDROmorphone HCL PF 0.5 MG/0.5 ML SYRINGE IV PUSH PRN (01:15)
[2017-06-09] MEDS ORDERED: NALOXONE HCL 0.4 MG/ML AMP IV PUSH PRN ×2 (01:15→09:00)
[2017-06-09] MEDS ORDERED: ONDANSETRON HCL 4 MG/2 ML VIAL IV PUSH PRN (05:15)
[2017-06-09] MEDS: PIPERACIL-TAZO 4.5 GM PREMIX 100 ML IV SCH ×4 (05:56→23:00)
[2017-06-09] MEDS: DOCUSATE SODIUM 50 MG/SENNA 8.6 MG TAB PO SCH ×2 (09:00→21:00)
[2017-06-09] MEDS ORDERED: SODIUM CHLORIDE 0.9% FLUSH 10 ML FLUSH IV FLUSH SCH (09:00)
[2017-06-09] MEDS ORDERED: oxyCODONE/ACETAMINOPHEN 5 MG/325 MG TAB PO PRN (09:00)
[2017-06-09] MEDS ORDERED: SENNOSIDES 8.6 MG TAB PO PRN (09:00)
[2017-06-09] MEDS ORDERED: BISACODYL 10 MG SUPP RECTAL PRN (09:00)
[2017-06-09] MEDS ORDERED: LACTULOSE SYRUP 20 GM/30 ML CUP PO PRN (09:00)
[2017-06-09] MEDS ORDERED: MAGNESIUM HYDROXIDE SUSP 30 ML CUP PO PRN (09:00)
[2017-06-09] MEDS ORDERED: PROCHLORPERAZINE 25 MG SUPP RECTAL PRN (09:00)
[2017-06-09] MEDS ORDERED: ACETAMINOPHEN 325 MG TAB PO PRN ×2 (09:00)
[2017-06-09] MEDS ORDERED: MORPHINE SULFATE 4 MG/ML INJ IV PUSH PRN (09:00)
[2017-06-09] MEDS: SODIUM CHLORIDE 0.9% FLUSH 10 ML FLUSH IV FLUSH SCH ×2 (09:00→21:00)
[2017-06-09] MEDS: ONDANSETRON HCL 4 MG/2 ML VIAL IVP PRN ×3 (09:37→23:00)
[2017-06-09] MEDS: MORPHINE SULFATE 4 MG/ML INJ IV PUSH PRN ×3 (09:38→18:24)
--- NOTE | 2017-06-09 13:14 | HHI.HP ---
HPI Service [facility] Hospitalists Primary Care Physician No Primary Care Physician Admission Diagnosis Acute cholecystitis Diagnoses: (1) Abdominal pain Diagnosis: Principal (2) COPD (chronic obstructive pulmonary disease) Diagnosis: Secondary (3) GERD (gastroesophageal reflux disease) Diagnosis: Secondary (4) History of alcoholism Diagnosis: Secondary (5) Hepatitis C Diagnosis: Secondary Chief Complaint: abdominal pain Travel History International Travel<30 Days: No Contact w/Intl Traveler <30 Da: No Traveled to Known Affected Are: No History of Present Illness The patient is an 61 year old male who presents to the [facility] emergency department with a history of abdominal pain that began again at 4:30PM. He last ate at 12:30 PM. He reports having n/v x2. He denies having any diarrhea. His last BM was earlier today. The pain is in the right upper quadrant of the abdomen. It radiates to his back. He has a dry cough that began earlier today. He reports having chest pain with this. He denies having a stress test. The patient reports that all the symptoms are similar to what he experienced when he was admitted to the hospital and diagnosed with acute cholecystitis from May [address] Ozuna, the general surgeon did see him in the hospital. The patient was started on IV antibiotic and then discharged home on Cipro and Flagyl. The patient completed the course of antibiotic. He did follow-up with Dr. Ozuna at the beginning of May and it was recommended that he follow a strict diet and report back on June 17. The patient reports that at that time he was uninsured. He reports that since then he has qualified for patient assistance. He was told that if he develops a recurrence of abdominal pain he should call Dr. Ozuna's office. He did call, however the office was closed. He then decided to come to the emergency department. On review of systems otherwise, the patient denies any recent fevers, neck pain, shortness of breath, diarrhea, urinary symptoms, or neurologic symptoms. He quit smoking 3 years ago. HAS ABDOMINAL PAIN AWAIT SURGICAL EVALUATION WILL ORDER US AND HIDA SCAN Review of Systems Constitutional: DENIES: Diaphoretic episodes, Fatigue, Fever, Weight gain, Weight loss, Chills, Dizziness Endocrine: DENIES: Heat/cold intolerance, Polydipsia, Polyuria, Polyphagia Eyes: DENIES: Blurred vision, Diplopia, Eye inflammation, Eye pain Ears, nose, mouth, throat: DENIES: Tinnitus, Hearing loss, Vertigo, Nasal discharge Respiratory: DENIES: Apneas, Cough, Snoring, Wheezing, Hemoptysis Cardiovascular: DENIES: Chest pain, Palpitations, Syncope, Dyspnea on Exertion , PND Gastrointestinal: COMPLAINS OF: Abdominal pain, DENIES: Black stools, Bloody stools, Constipation, Diarrhea, Nausea Genitourinary: DENIES: Sexual dysfunction, Urinary frequency, Urinary incontinence Musculoskeletal: DENIES: Joint pain, Muscle aches, Stiffness, Joint Swelling Integumentary: DENIES: Abnormal pigmentation, Nail changes, Pruritus Hematologic/lymphatic: DENIES: Bruising, Lymphadenopathy Immunologic/allergic: DENIES: Eczema, Urticaria Neurologic: DENIES: Abnormal gait, Headache, Localized weakness, Paresthesias Psychiatric: DENIES: Anxiety, Confusion, Mood changes, Depression Past Family Social History Past Medical History COPD GERD IV drug use last used in 1989 Hepatitis C Migraine headaches Past Surgical History Right hip surgery as a child Reported Medications Reported Meds & Active Scripts Active No Active Prescriptions or Reported Medications Allergies: Coded Allergies: prednisone (Unverified Allergy, Severe, Irritability/Anxiety, 06/08/17) PT STATES HE FELT LIKE JUMPING OUT OF THE WINDOW WHEN HE TOOK PREDNISONE LAST *MDRO Multi-Drug Resistant Organism (Unverified Adverse Reaction, Unknown , 06/08/17) MRSA 2009 MRSA and wound Active Ordered Medications Current Medications Sodium Chloride 500 ml @ 500 mls/hr BOLUS ONCE IV Last administered on 23:08; Start 06/08/17 at 23:00; Stop 06/08/17 at 23:59; Status DC Ondansetron HCl (Zofran Inj) 4 mg ONCE ONCE IV PUSH Last administered on 06/08 23:08; Start 06/08/17 at 23:00; Stop 06/08/17 at 23:01; Status DC Hydromorphone HCl (Dilaudid Pf Inj) 0.2 mg ONCE ONCE IV PUSH Last administered on 06/08/17 23:08; Start 06/08/17 at 23:00; Stop 06/08/17 at 23 :01; Status DC Piperacillin Sod/ Tazobactam Sod 50 ml @ 100 mls/hr ONCE ONCE IV Last administered on 06/09/17 00:38; Start 06/09/17 at 00:45; Stop 06/09/17 at 01 :14; Status DC Sodium Chloride (NS Flush) 2 ml UNSCH PRN IV FLUSH FLUSH AFTER USING IV ACCESS ; Start 06/09/17 at 01:15; Stop 06/09/17 at 09:04; Status DC Sodium Chloride (NS Flush) 2 ml BID IV FLUSH ; Start 06/09/17 at 09:00; Stop 06/09/17 at 09:04; Status DC Naloxone HCl (Narcan Inj) 0.4 mg UNSCH PRN IV PUSH SEE LABEL COMMENTS; Start 06/09/17 at 01:15; Stop 06/09/17 at 09:04; Status DC Hydromorphone HCl (Dilaudid Pf Inj) 0.2 mg Q4H PRN IV PUSH pain >5 Last administered on 06/09/17 04:40; Start 06/09/17 at 01:15; Stop 06/09/17 at 08 :57; Status DC Piperacillin Sod/ Tazobactam Sod 100 ml @ 200 mls/hr Q6H IV Last administered on 06/09/17 12:47; Start 06/09/17 at 06:15 Ondansetron HCl (Zofran Inj) 4 mg Q6HR PRN IV PUSH nausea Last administered on 06/09/17 05:56; Start 06/09/17 at 05:15; Stop 06/09/17 at 09:05; Status DC Pneumococcal Polyvalent Vaccine (Pneumovax-23 Inj) 25 mcg ONCE ONCE IM ; Start 06/10/17 at 10:00; Stop 06/10/17 at 10:01 Influenza Virus Vaccine (Flu (Quadrivalent) Vaccine Inj) 0.5 ml ONCE ONCE IM ; Start 06/10/17 at 10:00; Stop 06/10/17 at 10:01 Sodium Chloride (NS Flush) 2 ml UNSCH PRN IV FLUSH FLUSH AFTER USING IV ACCESS ; Start 06/09/17 at 09:00 Sodium Chloride (NS Flush) 2 ml BID IV FLUSH Last administered on 06/09/17 09 :00; Start 06/09/17 at 09:00 Acetaminophen (Tylenol) 650 mg Q4H PRN PO TEMP > 100.4; Start 06/09/17 at 09: 00 Ondansetron HCl (Zofran Inj) 4 mg Q6H PRN IVP NAUSEA OR VOMITING Last administered on 06/09/17 09:37; Start 06/09/17 at 09:00 Prochlorperazine (Compazine Supp) 25 mg Q12H PRN RECTAL NAUSEA OR VOMITING; Start 06/09/17 at 09:00 Acetaminophen (Tylenol) 650 mg Q6H PRN PO PAIN SCALE 1 TO 2; Start 06/09/17 at 09:00 Oxycodone/ Acetaminophen (Percocet 5-325 Mg) 1 tab Q6H PRN PO PAIN SCALE 3 TO 5; Start 06/09/17 at 09:00 Oxycodone/ Acetaminophen (Percocet 10-325 Mg) 1 tab Q6H PRN PO PAIN SCALE 6 TO 10; Start 06/09/17 at 09:00 Morphine Sulfate (Morphine Inj) 2 mg Q3H PRN IV PUSH Pain 3-5; if unable to take PO; Start 06/09/17 at 09:00 Morphine Sulfate (Morphine Inj) 4 mg Q3H PRN IV PUSH Pain 6-10;if unable to take PO Last administered on 06/09/17 12:48; Start 06/09/17 at 09:00 Naloxone HCl (Narcan Inj) 0.4 mg UNSCH PRN IV PUSH SEE LABEL COMMENTS; Start 06/09/17 at 09:00 Senna/Docusate Sodium (Neva-Colace) 1 tab BID PO ; Start 06/09/17 at 09:00 Magnesium Hydroxide (Milk Of Magnesia Liq) 30 ml Q12H PRN PO Mild constipation ; Start 06/09/17 at 09:00 Sennosides (Senokot) 17.2 mg Q12H PRN PO Moderate constipation; Start at 09:00 Bisacodyl (Dulcolax Supp) 10 mg DAILY PRN RECTAL SEVERE CONSITIPATION; Start 06/09/17 at 09:00 Lactulose (Lactulose Liq) 30 ml DAILY PRN PO SEVERE CONSITIPATION; Start 10/17 /17 at 09:00 Family History Tobacco abuse History of alcohol Social History History of IV drug abuse quit in 1989 Hepatitis C History of alcohol abuse Positive tobacco abuse Physical Exam Vital Signs Vital Signs Date Time Temp Pulse Resp B/P (MAP) Pulse Ox O2 Delivery O2 Flow Rate FiO2 06/09/17 12:38 97.8 66 20 116/75 (89) 95 06/09/17 08:23 98.5 64 20 112/70 (84) 93 06/09/17 04:00 97.0 80 16 128/80 (96) 94 06/09/17 02:19 97.8 67 16 135/78 (97) 96 06/09/17 01:58 06/08/17 22:21 98 Room Air 06/08/17 19:56 98.5 83 16 137/87 (104) 96 Physical Exam GENERAL: This is a well-nourished, well-developed patient, in no apparent distress. SKIN: No rashes, ecchymoses or lesions. Cool and dry. HEAD: Atraumatic. Normocephalic. No temporal or scalp tenderness. EYES: Pupils equal round and reactive. Extraocular motions intact. No scleral icterus. No injection or drainage. ENT: Nose without bleeding, purulent drainage or septal hematoma. Throat without erythema, tonsillar hypertrophy or exudate. Uvula midline. Airway patent. Tongue is midline NECK: Trachea midline. No JVD or lymphadenopathy. Supple, nontender, no meningeal signs. CARDIOVASCULAR: Regular rate and rhythm without murmurs, gallops, or rubs. S1 and S2 no S3 or S4 RESPIRATORY: Clear to auscultation. Breath sounds equal bilaterally. No wheezes , rales, or rhonchi. GASTROINTESTINAL: Abdomen soft, , nondistended. No hepato-splenomegaly, or palpable masses. No guarding. Right upper quadrant tenderness MUSCULOSKELETAL: Extremities without clubbing, cyanosis, or edema. No joint tenderness, effusion, or edema noted. No calf tenderness. Negative Homans sign bilaterally. NEUROLOGICAL: Awake and alert. Cranial nerves II through XII intact. Motor and sensory grossly within normal limits. Five out of 5 muscle strength in all muscle groups. Normal speech. Awake alert oriented talkative and cooperative Insight and judgment is good Mood and behaviors appropriate Laboratory Laboratory Tests Test 06/08/17 22:20 06/08/17 22:30 06/08/17 22:43 White Blood Count 6.0 Red Blood Count 4.63 Hemoglobin 14.5 Hematocrit 42.4 Mean Corpuscular Volume 91.5 Mean Corpuscular Hemoglobin 31.2 Mean Corpuscular Hemoglobin Concent 34.1 Red Cell Distribution Width 14.1 Platelet Count 105 Mean Platelet Volume 9.7 Neutrophils (%) (Auto) 80.1 Lymphocytes (%) (Auto) 10.6 Monocytes (%) (Auto) 8.4 Eosinophils (%) (Auto) 0.5 Basophils (%) (Auto) 0.4 Neutrophils # (Auto) 4.8 Lymphocytes # (Auto) 0.6 Monocytes # (Auto) 0.5 Eosinophils # (Auto) 0.0 Basophils # (Auto) 0.0 CBC Comment DIFF FINAL Differential Comment Blood Urea Nitrogen 16 Creatinine 0.79 Random Glucose 114 Total Protein 8.6 Albumin 4.2 Calcium Level 9.7 Magnesium Level 2.0 Alkaline Phosphatase 105 Aspartate Amino Transf (AST/SGOT) 45 Alanine Aminotransferase (ALT/SGPT) 55 Total Bilirubin 1.0 Sodium Level 133 Potassium Level 4.0 Chloride Level 100 Carbon Dioxide Level 28.2 Anion Gap 5 Estimat Glomerular Filtration Rate 100 Troponin I LESS THAN 0.02 C-Reactive Protein 0.88 Lipase 49 Lactic Acid Level 1.0 Urine Color YELLOW Urine Turbidity CLEAR Urine pH 7.0 Urine Specific [place] 1.021 Urine Protein NEG Urine Glucose (UA) NEG Urine Ketones 10 Urine Occult Blood NEG Urine Nitrite NEG Urine Bilirubin NEG Urine Urobilinogen LESS THAN 2.0 Urine Leukocyte Esterase NEG Urine RBC LESS THAN 1 Urine WBC LESS THAN 1 Urine Amorphous Sediment RARE Urine Mucus FEW Microscopic Urinalysis Comment CULT NOT INDICATED Result Diagram: 06/08/17221906/08/172219 Caprini VTE Risk Assessment Caprini VTE Risk Assessment: No/Low Risk (score <= 1) Caprini Risk Assessment Model Point Value = 1 Point Value = 2 Point Value = 3 Point Value = 5 Age 41-60 Minor surgery BMI > 25 kg/m2 Swollen legs Varicose veins or History of unexplained or recurrent spontaneous Oral contraceptives or hormone replacement Sepsis (< 1 month) Serious lung disease, including pneumonia (< 1 month) Abnormal pulmonary function Acute myocardial infarction Congestive heart failure (< 1 month) History of inflammatory bowel disease Medical patient at bed rest Age 61-74 Arthroscopic surgery Major open surgery (> 45 min) Laparoscopic surgery (> 45 min) Malignancy Confined to bed (> 72 hours) Immobilizing plaster cast Central venous access Age >= 75 History of VTE Family history of VTE Factor V Leiden Prothrombin [id number] Lupus anticoagulant Anticardiolipin antibodies Elevated serum homocysteine Heparin-induced thrombocytopenia Other congenital or acquired thrombophilia Stroke (< 1 month) Elective arthroplasty Hip, pelvis, or leg fracture Acute spinal cord injury (< 1 month) Prophylaxis Regimen Total Risk Factor Score Risk Level Prophylaxis Regimen 0-1 Low Early ambulation 2 Moderate Order ONE of the following: *Sequential Compression Device (SCD) *Heparin 5000 units SQ BID 3-4 Higher Order ONE of the following medications: *Heparin 5000 units SQ TID *Enoxaparin/Lovenox 40 mg SQ daily (WT < 150 kg, CrCl > 30 mL/min) *Enoxaparin/Lovenox 30 mg SQ daily (WT < 150 kg, CrCl > 10-29 mL/min) *Enoxaparin/Lovenox 30 mg SQ BID (WT < 150 kg, CrCl > 30 mL/min) AND/OR *Sequential Compression Device (SCD) 5 or more Highest Order ONE of the following medications: *Heparin 5000 units SQ TID (Preferred with Epidurals) *Enoxaparin/Lovenox 40 mg SQ daily (WT < 150 kg, CrCl > 30 mL/min) *Enoxaparin/Lovenox 30 mg SQ daily (WT < 150 kg, CrCl > 10-29 mL/min) *Enoxaparin/Lovenox 30 mg SQ BID (WT < 150 kg, CrCl > 30 mL/min) AND *Sequential Compression Device (SCD) Assessment and Plan Problem List: (1) Hepatitis C ICD Code: B19.20 - Hepatitis C Status: Chronic (2) Abdominal pain ICD Code: R10.9 - Unspecified abdominal pain (3) GERD (gastroesophageal reflux disease) ICD Code: K21.9 - Gastro-esophageal reflux disease without esophagitis Status: Acute (4) COPD (chronic obstructive pulmonary disease) ICD Code: J44.9 - COPD (chronic obstructive pulmonary disease) Status: Chronic Assessment and Plan Abdominal pain improved with morphine Rule out cholecystitis since recently had cholecystitis but did not have gallbladder surgery Await surgical evaluation We'll get a HIDA scan will get a ultrasound of the abdomen COPD chronic recommend smoking cessation Elevated LFTs secondary to chronic hepatitis C Continue on pain control DVT prophylaxis with SCDs GERD PPI Discussed with patient and RN Code Status Full code Discussed Condition With Patient, RN, and family in the room Physician Certification 2 Midnight Certification Type: Admission for Inpatient Services Order for Inpatient Services The services are ordered in accordance with Medicare regulations or non- Medicare payer requirements, as applicable. In the case of services not specified as inpatient-only, they are appropriately provided as inpatient services in accordance with the 2-midnight benchmark. Estimated LOS (days): 3 3 days is the estimated time the patient will need to remain in the hospital, assuming treatment plan goals are met and no additional complications. Post-Hospital Plan: Home Denny Clarke DO Jun 09, 2017 13:14
[2017-06-09] MEDS ORDERED: KETOROLAC TROMETHAMINE 30 MG/ML (IVP) VIAL IV PUSH PRN (13:15)
--- NOTE | 2017-06-09 16:18 | PD.CONS ---
HPI Service General surgery Consult Requested By Dr. Clarke Reason for Consult Acute cholecystitis Primary Care Physician No Primary Care Physician History of Present Illness Mr. Castaneda returns with recurrence of abdominal pain in the right upper abdomen which was very severe starting yesterday. He had associated nausea and vomiting. He has had some mild episodes of similar pain since his admission in April for acute cholecystitis. He has not followed up with me in the office since that time. He was noted to have leukocytosis. Gallbladder u/s at this time was read as normal. However, on 05/02/17 his u/s showed wall thickening with sludge so there has been documented disease very recently. Review of Systems Constitutional: DENIES: Fever, Chills Eyes: DENIES: Eye inflammation, Eye pain Ears, nose, mouth, throat: DENIES: Oral lesions, Throat pain Respiratory: DENIES: Cough, Wheezing Cardiovascular: DENIES: Chest pain, Palpitations Gastrointestinal: COMPLAINS OF: Abdominal pain, Nausea, Vomiting Integumentary: DENIES: Pruritus, Rash Neurologic: DENIES: Paresthesias, Seizures Past Family Social History Past Medical History COPD GERD Hepatitis C Migraine headaches Past Surgical History Right hip surgery Reported Medications Reported Meds & Active Scripts Active No Active Prescriptions or Reported Medications Allergies: Coded Allergies: prednisone (Unverified Allergy, Severe, Irritability/Anxiety, 06/08/17) PT STATES HE FELT LIKE JUMPING OUT OF THE WINDOW WHEN HE TOOK PREDNISONE LAST *MDRO Multi-Drug Resistant Organism (Unverified Adverse Reaction, Unknown , 06/08/17) MRSA 2009 MRSA and wound Active Ordered Medications Current Medications Medications (Trade) Dose Ordered Sig/Makenzie Route Start Time Stop Time Status Last Admin Piperacillin Sod/ Tazobactam Sod 100 ml @ 200 mls/hr Q6H IV 06/09/17 06:15 06/09/17 12:47 (Pneumovax-23 Inj) 25 mcg ONCE ONCE IM 06/10/17 10:00 06/10/17 10:01 (Flu (Quadrivalent) Vaccine Inj) 0.5 ml ONCE ONCE IM 06/10/17 10:00 06/10/17 10:01 (NS Flush) 2 ml UNSCH PRN IV FLUSH 06/09/17 09:00 (NS Flush) 2 ml BID IV FLUSH 06/09/17 09:00 06/09/17 09:00 (Tylenol) 650 mg Q4H PRN PO 06/09/17 09:00 (Zofran Inj) 4 mg Q6H PRN IVP 06/09/17 09:00 06/09/17 09:37 (Compazine Supp) 25 mg Q12H PRN RECTAL 06/09/17 09:00 (Tylenol) 650 mg Q6H PRN PO 06/09/17 09:00 (Percocet 5-325 Mg) 1 tab Q6H PRN PO 06/09/17 09:00 (Percocet 10-325 Mg) 1 tab Q6H PRN PO 06/09/17 09:00 (Morphine Inj) 2 mg Q3H PRN IV PUSH 06/09/17 09:00 (Morphine Inj) 4 mg Q3H PRN IV PUSH 06/09/17 09:00 06/09/17 12:48 (Narcan Inj) 0.4 mg UNSCH PRN IV PUSH 06/09/17 09:00 (Neva-Colace) 1 tab BID PO 06/09/17 09:00 (Milk Of Magnesia Liq) 30 ml Q12H PRN PO 06/09/17 09:00 (Senokot) 17.2 mg Q12H PRN PO 06/09/17 09:00 (Dulcolax Supp) 10 mg DAILY PRN RECTAL 06/09/17 09:00 (Lactulose Liq) 30 ml DAILY PRN PO 06/09/17 09:00 (Toradol Inj) 30 mg Q6H PRN IV PUSH 06/09/17 13:15 UNV Family History Noncontributory Social History History of IV drug abuse quit in 1989 History of alcohol abuse Positive tobacco use Physical Exam Vital Signs Vital Signs Date Time Temp Pulse Resp B/P (MAP) Pulse Ox O2 Delivery O2 Flow Rate FiO2 06/09/17 12:38 97.8 66 20 116/75 (89) 95 06/09/17 08:23 98.5 64 20 112/70 (84) 93 06/09/17 04:00 97.0 80 16 128/80 (96) 94 06/09/17 02:19 97.8 67 16 135/78 (97) 96 06/09/17 01:58 06/08/17 22:21 98 Room Air 06/08/17 19:56 98.5 83 16 137/87 (104) 96 Physical Exam GENERAL: Awake and alert. No acute distress. Cooperative. HEAD: Normocephalic. Atraumatic. EYES: Pupils equal round and reactive to light bilaterally. No scleral icterus. CHEST: Lungs clear to auscultation bilaterally with no wheezing or rhonchi. No respiratory distress. CARDIOVASCULAR: Regular rate and rhythm. ABDOMEN: Moderate right upper quadrant tenderness to palpation. Soft, nondistended. EXTREMITIES: No cyanosis or edema. SKIN: Warm, dry, nonjaundiced. Laboratory Laboratory Tests Test 06/08/17 22:20 06/08/17 22:30 06/08/17 22:43 White Blood Count 6.0 Red Blood Count 4.63 Hemoglobin 14.5 Hematocrit 42.4 Mean Corpuscular Volume 91.5 Mean Corpuscular Hemoglobin 31.2 Mean Corpuscular Hemoglobin Concent 34.1 Red Cell Distribution Width 14.1 Platelet Count 105 Mean Platelet Volume 9.7 Neutrophils (%) (Auto) 80.1 Lymphocytes (%) (Auto) 10.6 Monocytes (%) (Auto) 8.4 Eosinophils (%) (Auto) 0.5 Basophils (%) (Auto) 0.4 Neutrophils # (Auto) 4.8 Lymphocytes # (Auto) 0.6 Monocytes # (Auto) 0.5 Eosinophils # (Auto) 0.0 Basophils # (Auto) 0.0 CBC Comment DIFF FINAL Differential Comment Blood Urea Nitrogen 16 Creatinine 0.79 Random Glucose 114 Total Protein 8.6 Albumin 4.2 Calcium Level 9.7 Magnesium Level 2.0 Alkaline Phosphatase 105 Aspartate Amino Transf (AST/SGOT) 45 Alanine Aminotransferase (ALT/SGPT) 55 Total Bilirubin 1.0 Sodium Level 133 Potassium Level 4.0 Chloride Level 100 Carbon Dioxide Level 28.2 Anion Gap 5 Estimat Glomerular Filtration Rate 100 Troponin I LESS THAN 0.02 C-Reactive Protein 0.88 Lipase 49 Lactic Acid Level 1.0 Urine Color YELLOW Urine Turbidity CLEAR Urine pH 7.0 Urine Specific [place] 1.021 Urine Protein NEG Urine Glucose (UA) NEG Urine Ketones 10 Urine Occult Blood NEG Urine Nitrite NEG Urine Bilirubin NEG Urine Urobilinogen LESS THAN 2.0 Urine Leukocyte Esterase NEG Urine RBC LESS THAN 1 Urine WBC LESS THAN 1 Urine Amorphous Sediment RARE Urine Mucus FEW Microscopic Urinalysis Comment CULT NOT INDICATED Result Diagram: 06/08/17221906/08/172219 Imaging Last Impressions Abdomen Ultrasound 06/09/17 0000 Signed Impressions: Service Date/Time: Friday, June 09, 2017 16:11 - CONCLUSION: 1. Mild splenomegaly. 2. No acute abnormality. Modesto Das Jr., MD Assessment and Plan Assessment and Plan 61-year-old male well known to me from previous admission in April at which time he was treated nonoperatively for acute cholecystitis due to prolonged duration of cholecystitis prior to presentation. Unfortunately have not seen him in the office since that time. He presents with the same symptoms and is also had milder pain intermittently since previous admission. He clearly had acute cholecystitis in April and the symptoms are the same. Therefore, despite a normal-appearing ultrasound I would recommend to proceed with laparoscopic possible open cholecystectomy. The patient believes this is also the same etiology. He desires to proceed with surgery. Mckinley Ozuna MD Jun 09, 2017 16:18
--- NOTE | 2017-06-09 17:11 | RADRPT ---
EXAM DATE/TIME: 06/09/2017 16:11 [facility] COMPARISON: No previous studies available for comparison. INDICATIONS : Abdominal pain. MEDICAL HISTORY : Chronic obstructive pulmonary disease. Emphysema. Hepatitis C. Migraines. Chronic bronchitis. Dyspnea . MRSA. SURGICAL HISTORY : Right hip surgery. ENCOUNTER: Subsequent ACUITY: 1 month PAIN SCORE: 6/10 LOCATION: Bilateral upper quadrant MEASUREMENTS: LIVER: 13.3 cm length COMMON DUCT: 4 mm RIGHT KIDNEY: 9.7 x 5.4 x 5.7 cm LEFT KIDNEY: 8.8 x 4.6 x 3.9 cm SPLEEN: 14.8 cm length AORTA: 1.3cm maximal FINDINGS: LIVER: Normal echotexture without focal lesion or ductal dilatation. COMMON DUCT: No intraluminal mass or stone visualized. GALLBLADDER: Contains no stones, demonstrates no wall thickening or pericholecystic fluid. No discernible sludge. PANCREAS: The visualized portions are within normal limits. RIGHT KIDNEY: No hydronephrosis, stone or mass. The lower pole is obscured by bowel gas. LEFT KIDNEY: No hydronephrosis, stone or mass. SPLEEN: No focal lesion. AORTA: Non aneurysmal. IVC: Within normal limits. CONCLUSION: 1. Mild splenomegaly. 2. No acute abnormality. Modesto Das Jr., MD on June 09, 2017 at 17:08 Board Certified Radiologist. This report was verified electronically.
[2017-06-09 17:54] LABS: CHOLESTEROL/ HDL RATIO 2.1 RATIO; HDL CHOLESTEROL 39.9 MG/DL (40.0-60.0)
--- NOTE | 2017-06-09 19:59 | EKG ---
Date Performed: 06/08/2017 Time Performed: 22:43:06 PTAGE: 61 years EKG: Sinus rhythm NORMAL ECG PREVIOUS TRACING : 05/02/2017 10.57 DOCTOR: Mk uDarte Interpretating Date/Time 06/09/2017 19:57:25
--- NOTE | 2017-06-09 19:59 | EKG ---
Date Performed: 06/08/2017 Time Performed: 22:43:06 PTAGE: 61 years EKG: Sinus rhythm NORMAL ECG PREVIOUS TRACING : 05/02/2017 10.57 DOCTOR: Mk Duarte Interpretating Date/Time 06/09/2017 19:57:25
--- NOTE | 2017-06-09 19:59 | EKG ---
Date Performed: 06/08/2017 Time Performed: 22:43:06 PTAGE: 61 years EKG: Sinus rhythm NORMAL ECG PREVIOUS TRACING : 05/02/2017 10.57 DOCTOR: Mk Duarte Interpretating Date/Time 06/09/2017 19:57:25
[2017-06-10] VITALS (7 sets, daily range): BP systolic 111–130; BP diastolic 69–80; PULSE 66–111; RESP 17–20; TEMP 97–98.8; O2SAT 94–97
[2017-06-10] MEDS: PIPERACIL-TAZO 4.5 GM PREMIX 100 ML IV SCH ×2 (06:06→13:17)
[2017-06-10] MEDS: ONDANSETRON HCL 4 MG/2 ML VIAL IVP PRN (08:15)
[2017-06-10] MEDS: DOCUSATE SODIUM 50 MG/SENNA 8.6 MG TAB PO SCH ×2 (09:00→21:25)
[2017-06-10] MEDS: SODIUM CHLORIDE 0.9% FLUSH 10 ML FLUSH IV FLUSH SCH ×2 (09:32→21:00)
[2017-06-10] MEDS ORDERED: INFLUENZA VIRUS VACCINE (QUADRIVALENT) 0.5 ML SYR IM ONE (10:00)
[2017-06-10] MEDS ORDERED: PNEUMOCOCCAL POLYVALENT INJ 25 MCG/0.5 ML SYR IM ONE (10:00)
[2017-06-10 10:55] LABS: AUTOMATED NEUTROPHIL # 5.2 TH/MM3 (1.8-7.7); BASOPHIL % 0.4 % (0.0-2.0); EOSINOPHIL % 0.7 % (0.0-4.0); HEMATOCRIT 40.9 % (39.0-51.0); HEMOGLOBIN 14.2 GM/DL (13.0-17.0); LYMPH % 9.8 % (9.0-44.0); LYMPHOCYTE # 0.6 TH/MM3 (1.0-4.8); MEAN CELL VOLUME 91.3 FL (80.0-100.0); MEAN CORPUSCULAR HEMOGLOBIN 31.8 PG (27.0-34.0); MEAN CORPUSCULAR HGB CONC 34.8 % (32.0-36.0); MEAN PLATELET VOLUME 9.8 FL (7.0-11.0); MONOCYTE # 0.6 TH/MM3 (0-0.9); NEUT % 80.1 % (16.0-70.0); PLATELET COUNT 93 TH/MM3 (150-450); RED BLOOD COUNT 4.48 MIL/MM3 (4.50-5.90); RED CELL DISTRIBUTION WIDTH 13.6 % (11.6-17.2); WHITE BLOOD COUNT 6.5 TH/MM3 (4.0-11.0)
[2017-06-10 11:11] LABS: ALBUMIN 3.9 GM/DL (3.4-5.0); AMYLASE 33 U/L (25-115); BICARBONATE 29.8 MEQ/L (21.0-32.0); BLOOD UREA NITROGEN 17 MG/DL (7-18); CALCIUM 9.6 MG/DL (8.5-10.1); CHLORIDE 96 MEQ/L (98-107); CREATININE 0.95 MG/DL (0.60-1.30); GLOMERULAR FILTRATION RATE 81 ML/MIN (>89); GLUCOSE,RANDOM 89 MG/DL (74-106); LIPASE 43 U/L (73-393); MAGNESIUM 1.9 MG/DL (1.5-2.5); SODIUM (NA) 134 MEQ/L (136-145)
[2017-06-10 11:12] LABS: AST (GOT) 44 U/L (15-37)
[2017-06-10 11:21] LABS: ALKALINE PHOSPHATASE 97 U/L (45-117); ALT (GPT) 53 U/L (12-78); FREE T4 1.57 NG/DL (0.76-1.46); PHOSPHORUS 2.6 MG/DL (2.5-4.9); TOTAL BILIRUBIN ADULT 1.7 MG/DL (0.2-1.0); TOTAL PROTEIN 8.5 GM/DL (6.4-8.2)
--- NOTE | 2017-06-10 11:32 | HHI.PR ---
Subjective Remarks The patient is an 61 year old male who presents to the [facility] emergency department with a history of abdominal pain that began again at 4:30PM. He last ate at 12:30 PM. He reports having n/v x2. He denies having any diarrhea. His last BM was earlier today. The pain is in the right upper quadrant of the abdomen. It radiates to his back. He has a dry cough that began earlier today. He reports having chest pain with this. He denies having a stress test. The patient reports that all the symptoms are similar to what he experienced when he was admitted to the hospital and diagnosed with acute cholecystitis from May [address] Ozuna, the general surgeon did see him in the hospital. The patient was started on IV antibiotic and then discharged home on Cipro and Flagyl. The patient completed the course of antibiotic. He did follow-up with Dr. Ozuna at the beginning of May and it was recommended that he follow a strict diet and report back on June 17. The patient reports that at that time he was uninsured. He reports that since then he has qualified for patient assistance. He was told that if he develops a recurrence of abdominal pain he should call Dr. Ozuna's office. He did call, however the office was closed. He then decided to come to the emergency department. On review of systems otherwise, the patient denies any recent fevers, neck pain, shortness of breath, diarrhea, urinary symptoms, or neurologic symptoms. He quit smoking 3 years ago. HAS ABDOMINAL PAIN AWAIT SURGICAL EVALUATION 9-18 SEEN BY SURGERY LAST NIGHT TO GO FOR LAP CHOLECYSTECTOMY TODAY DW RN AND PT AM LABS HAD NAUSEA AND VOMITING AND ABDOMINAL PAIN YESTERDAY AND TODAY Objective Vitals Vital Signs Date Time Temp Pulse Resp B/P (MAP) Pulse Ox O2 Delivery O2 Flow Rate FiO2 06/10/17 08:48 98.2 76 20 117/69 (85) 94 06/10/17 08:11 96 06/10/17 07:51 76 06/10/17 05:15 97.0 66 17 130/80 (97) 97 06/10/17 00:45 98.8 69 18 122/79 (93) 97 06/09/17 21:27 21 06/09/17 21:25 77 06/09/17 20:00 97.8 64 17 125/65 (85) 96 10/17/17 17:12 98.6 69 20 123/73 (90) 95 06/09/17 12:38 97.8 66 20 116/75 (89) 95 I/O 06/09/17 06/09/17 06/09/17 06/10/17 06/10/17 06/10/17 07:00 15:00 23:00 07:00 15:00 23:00 Intake Total 550 ml 0 ml 100 ml 100 ml Balance 550 ml 0 ml 100 ml 100 ml Intake Oral 0 ml 0 ml IV Total 550 ml 100 ml 100 ml # Voids 1 2 # Bowel Movements 0 0 Result Diagram: 06/10/17 0953 06/10/17 0953 Other Results Laboratory Tests Test 06/08/17 22:20 06/08/17 22:30 06/08/17 22:43 06/09/17 15:50 White Blood Count 6.0 TH/MM3 Red Blood Count 4.63 MIL/MM3 Hemoglobin 14.5 GM/DL Hematocrit 42.4 % Mean Corpuscular Volume 91.5 FL Mean Corpuscular Hemoglobin 31.2 PG Mean Corpuscular Hemoglobin Concent 34.1 % Red Cell Distribution Width 14.1 % Platelet Count 105 TH/MM3 Mean Platelet Volume 9.7 FL Neutrophils (%) (Auto) 80.1 % Lymphocytes (%) (Auto) 10.6 % Monocytes (%) (Auto) 8.4 % Eosinophils (%) (Auto) 0.5 % Basophils (%) (Auto) 0.4 % Neutrophils # (Auto) 4.8 TH/MM3 Lymphocytes # (Auto) 0.6 TH/MM3 Monocytes # (Auto) 0.5 TH/MM3 Eosinophils # (Auto) 0.0 TH/MM3 Basophils # (Auto) 0.0 TH/MM3 CBC Comment DIFF FINAL Differential Comment Blood Urea Nitrogen 16 MG/DL Creatinine 0.79 MG/DL Random Glucose 114 MG/DL Total Protein 8.6 GM/DL Albumin 4.2 GM/DL Calcium Level 9.7 MG/DL Magnesium Level 2.0 MG/DL Alkaline Phosphatase 105 U/L Aspartate Amino Transf (AST/SGOT) 45 U/L Alanine Aminotransferase (ALT/SGPT) 55 U/L Total Bilirubin 1.0 MG/DL Sodium Level 133 MEQ/L Potassium Level 4.0 MEQ/L Chloride Level 100 MEQ/L Carbon Dioxide Level 28.2 MEQ/L Anion Gap 5 MEQ/L Estimat Glomerular Filtration Rate 100 ML/MIN Troponin I LESS THAN 0.02 NG/ML C-Reactive Protein 0.88 MG/DL Lipase 49 U/L Lactic Acid Level 1.0 mmol/L Urine Color YELLOW Urine Turbidity CLEAR Urine pH 7.0 Urine Specific [place] 1.021 Urine Protein NEG mg/dL Urine Glucose (UA) NEG mg/dL Urine Ketones 10 mg/dL Urine Occult Blood NEG Urine Nitrite NEG Urine Bilirubin NEG Urine Urobilinogen LESS THAN 2.0 MG/DL Urine Leukocyte Esterase NEG Urine RBC LESS THAN 1 /hpf Urine WBC LESS THAN 1 /hpf Urine Amorphous Sediment RARE Urine Mucus FEW /lpf Microscopic Urinalysis Comment CULT NOT INDICATED Triglycerides Level 57 MG/DL Cholesterol Level 84 MG/DL LDL Cholesterol 33 MG/DL HDL Cholesterol 39.9 MG/DL Cholesterol/HDL Ratio 2.10 RATIO Test 06/10/17 09:53 White Blood Count 6.5 TH/MM3 Red Blood Count 4.48 MIL/MM3 Hemoglobin 14.2 GM/DL Hematocrit 40.9 % Mean Corpuscular Volume 91.3 FL Mean Corpuscular Hemoglobin 31.8 PG Mean Corpuscular Hemoglobin Concent 34.8 % Red Cell Distribution Width 13.6 % Platelet Count 93 TH/MM3 Mean Platelet Volume 9.8 FL Neutrophils (%) (Auto) 80.1 % Lymphocytes (%) (Auto) 9.8 % Monocytes (%) (Auto) 9.0 % Eosinophils (%) (Auto) 0.7 % Basophils (%) (Auto) 0.4 % Neutrophils # (Auto) 5.2 TH/MM3 Lymphocytes # (Auto) 0.6 TH/MM3 Monocytes # (Auto) 0.6 TH/MM3 Eosinophils # (Auto) 0.0 TH/MM3 Basophils # (Auto) 0.0 TH/MM3 CBC Comment AUTO DIFF Blood Urea Nitrogen 17 MG/DL Creatinine 0.95 MG/DL Random Glucose 89 MG/DL Total Protein 8.5 GM/DL Albumin 3.9 GM/DL Calcium Level 9.6 MG/DL Phosphorus Level 2.6 MG/DL Magnesium Level 1.9 MG/DL Alkaline Phosphatase 97 U/L Aspartate Amino Transf (AST/SGOT) 44 U/L Alanine Aminotransferase (ALT/SGPT) 53 U/L Total Bilirubin 1.7 MG/DL Sodium Level 134 MEQ/L Potassium Level 3.8 MEQ/L Chloride Level 96 MEQ/L Carbon Dioxide Level 29.8 MEQ/L Anion Gap 8 MEQ/L Estimat Glomerular Filtration Rate 81 ML/MIN Amylase Level 33 U/L Lipase 43 U/L Free Thyroxine 1.57 NG/DL Thyroid Stimulating Hormone 3rd Gen 0.554 uIU/ML Imaging Last Impressions Abdomen Ultrasound 06/09/17 0000 Signed Impressions: Service Date/Time: Friday, June 09, 2017 16:11 - CONCLUSION: 1. Mild splenomegaly. 2. No acute abnormality. Modesto Das Jr., MD Objective Remarks GENERAL: This is a well-nourished, well-developed patient, in no apparent distress. SKIN: No rashes, ecchymoses or lesions. Cool and dry. HEAD: Atraumatic. Normocephalic. No temporal or scalp tenderness. EYES: Pupils equal round and reactive. Extraocular motions intact. No scleral icterus. No injection or drainage. ENT: Nose without bleeding, purulent drainage or septal hematoma. Throat without erythema, tonsillar hypertrophy or exudate. Uvula midline. Airway patent. Tongue is midline NECK: Trachea midline. No JVD or lymphadenopathy. Supple, nontender, no meningeal signs. CARDIOVASCULAR: Regular rate and rhythm without murmurs, gallops, or rubs. S1 and S2 no S3 or S4 RESPIRATORY: Clear to auscultation. Breath sounds equal bilaterally. No wheezes , rales, or rhonchi. GASTROINTESTINAL: Abdomen soft, , nondistended. No hepato-splenomegaly, or palpable masses. No guarding. Right upper quadrant tenderness MUSCULOSKELETAL: Extremities without clubbing, cyanosis, or edema. No joint tenderness, effusion, or edema noted. No calf tenderness. Negative Homans sign bilaterally. NEUROLOGICAL: Awake and alert. Cranial nerves II through XII intact. Motor and sensory grossly within normal limits. Five out of 5 muscle strength in all muscle groups. Normal speech. Awake alert oriented talkative and cooperative Insight and judgment is good Mood and behaviors appropriate Medications and IVs Current Medications Sodium Chloride 500 ml @ 500 mls/hr BOLUS ONCE IV Last administered on 23:08; Start 06/08/17 at 23:00; Stop 06/08/17 at 23:59; Status DC Ondansetron HCl (Zofran Inj) 4 mg ONCE ONCE IV PUSH Last administered on 06/08 23:08; Start 06/08/17 at 23:00; Stop 06/08/17 at 23:01; Status DC Hydromorphone HCl (Dilaudid Pf Inj) 0.2 mg ONCE ONCE IV PUSH Last administered on 06/08/17 23:08; Start 06/08/17 at 23:00; Stop 06/08/17 at 23 :01; Status DC Piperacillin Sod/ Tazobactam Sod 50 ml @ 100 mls/hr ONCE ONCE IV Last administered on 06/09/17 00:38; Start 06/09/17 at 00:45; Stop 06/09/17 at 01 :14; Status DC Sodium Chloride (NS Flush) 2 ml UNSCH PRN IV FLUSH FLUSH AFTER USING IV ACCESS ; Start 06/09/17 at 01:15; Stop 06/09/17 at 09:04; Status DC Sodium Chloride (NS Flush) 2 ml BID IV FLUSH ; Start 06/09/17 at 09:00; Stop 06/09/17 at 09:04; Status DC Naloxone HCl (Narcan Inj) 0.4 mg UNSCH PRN IV PUSH SEE LABEL COMMENTS; Start 06/09/17 at 01:15; Stop 06/09/17 at 09:04; Status DC Hydromorphone HCl (Dilaudid Pf Inj) 0.2 mg Q4H PRN IV PUSH pain >5 Last administered on 06/09/17 04:40; Start 06/09/17 at 01:15; Stop 06/09/17 at 08 :57; Status DC Piperacillin Sod/ Tazobactam Sod 100 ml @ 200 mls/hr Q6H IV Last administered on 06/10/17 06:06; Start 06/09/17 at 06:15 Ondansetron HCl (Zofran Inj) 4 mg Q6HR PRN IV PUSH nausea Last administered on 06/09/17 05:56; Start 06/09/17 at 05:15; Stop 06/09/17 at 09:05; Status DC Pneumococcal Polyvalent Vaccine (Pneumovax-23 Inj) 25 mcg ONCE ONCE IM ; Start 06/10/17 at 10:00; Stop 06/10/17 at 10:01; Status DC Influenza Virus Vaccine (Flu (Quadrivalent) Vaccine Inj) 0.5 ml ONCE ONCE IM ; Start 06/10/17 at 10:00; Stop 06/10/17 at 10:01; Status DC Sodium Chloride (NS Flush) 2 ml UNSCH PRN IV FLUSH FLUSH AFTER USING IV ACCESS ; Start 06/09/17 at 09:00 Sodium Chloride (NS Flush) 2 ml BID IV FLUSH Last administered on 06/10/17 09 :32; Start 06/09/17 at 09:00 Acetaminophen (Tylenol) 650 mg Q4H PRN PO TEMP > 100.4; Start 06/09/17 at 09: 00 Ondansetron HCl (Zofran Inj) 4 mg Q6H PRN IVP NAUSEA OR VOMITING Last administered on 06/10/17 08:15; Start 06/09/17 at 09:00 Prochlorperazine (Compazine Supp) 25 mg Q12H PRN RECTAL NAUSEA OR VOMITING; Start 06/09/17 at 09:00 Acetaminophen (Tylenol) 650 mg Q6H PRN PO PAIN SCALE 1 TO 2; Start 06/09/17 at 09:00 Oxycodone/ Acetaminophen (Percocet 5-325 Mg) 1 tab Q6H PRN PO PAIN SCALE 3 TO 5; Start 06/09/17 at 09:00 Oxycodone/ Acetaminophen (Percocet 10-325 Mg) 1 tab Q6H PRN PO PAIN SCALE 6 TO 10; Start 06/09/17 at 09:00 Morphine Sulfate (Morphine Inj) 2 mg Q3H PRN IV PUSH Pain 3-5; if unable to take PO; Start 06/09/17 at 09:00 Morphine Sulfate (Morphine Inj) 4 mg Q3H PRN IV PUSH Pain 6-10;if unable to take PO Last administered on 06/09/17 18:24; Start 06/09/17 at 09:00 Naloxone HCl (Narcan Inj) 0.4 mg UNSCH PRN IV PUSH SEE LABEL COMMENTS; Start 06/09/17 at 09:00 Senna/Docusate Sodium (Neva-Colace) 1 tab BID PO ; Start 06/09/17 at 09:00 Magnesium Hydroxide (Milk Of Magnesia Liq) 30 ml Q12H PRN PO Mild constipation ; Start 06/09/17 at 09:00 Sennosides (Senokot) 17.2 mg Q12H PRN PO Moderate constipation; Start at 09:00 Bisacodyl (Dulcolax Supp) 10 mg DAILY PRN RECTAL SEVERE CONSITIPATION; Start 06/09/17 at 09:00 Lactulose (Lactulose Liq) 30 ml DAILY PRN PO SEVERE CONSITIPATION; Start 06/09 at 09:00 Ketorolac Tromethamine (Toradol Inj) 30 mg Q6H PRN IV PUSH PAIN 5-10; Start at 13:15; Stop 06/14/17 at 13:14 Urinary Catheter: No Vascular Central Line Catheter: No A/P Problem List: (1) Hepatitis C ICD Code: B19.20 - Hepatitis C Status: Chronic (2) Abdominal pain ICD Code: R10.9 - Unspecified abdominal pain (3) GERD (gastroesophageal reflux disease) ICD Code: K21.9 - Gastro-esophageal reflux disease without esophagitis Status: Acute (4) COPD (chronic obstructive pulmonary disease) ICD Code: J44.9 - COPD (chronic obstructive pulmonary disease) Status: Chronic (5) Thrombocytopenia ICD Code: D69.6 - Thrombocytopenia Status: Acute Assessment and Plan Abdominal pain improved with morphine Rule out cholecystitis since recently had cholecystitis but did not have gallbladder surgery SEEN BY SURGERY 06-09 FOR SURGERY 06-10 LAP TONI COPD chronic recommend smoking cessation Elevated LFTs secondary to chronic hepatitis C THROMBOCYTOPENIA- DUE TO HEP C- CHRONIC ABDOMINAL PAIN- NAUSEA AND VOMITING- TO GO FOR LAP TONI 06-10 Continue on pain control DVT prophylaxis with SCDs GERD PPI 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
[2017-06-10] MEDS ORDERED: ONDANSETRON HCL 4 MG/2 ML VIAL IV PUSH ONE (12:00)
[2017-06-10] MEDS ORDERED: GLYCOPYRROLATE 1 MG/5 ML SYRINGE IV PUSH ONE (12:00)
[2017-06-10] MEDS ORDERED: DEXAMETHASONE SOD PHOS 4 MG/ML VIAL IV ONE (12:00)
[2017-06-10] MEDS ORDERED: PHENYLEPH/NS 1000 MCG/10 ML SYR IV ONE (12:00)
[2017-06-10] MEDS ORDERED: ePHEDrine/NS 25 MG/5 ML SYR IV ONE (12:00)
[2017-06-10] MEDS ORDERED: NEOSTIGMINE 3 MG/3 ML SYR IV ONE (12:00)
[2017-06-10] MEDS ORDERED: PROPOFOL 200 MG/20 ML AMP IV ONE (12:00)
[2017-06-10] MEDS ORDERED: LIDOCAINE HCL 1% PF 5 ML AMPULE OTHER ONE (12:00)
[2017-06-10] MEDS ORDERED: MIDAZOLAM HCL 2 MG/2 ML VIAL IV ONE (12:00)
[2017-06-10] MEDS ORDERED: LACTATED RINGER'S 1000 ML INJ 1,000 ML IV ONE (12:00)
[2017-06-10] MEDS ORDERED: ROCURONIUM INJ 50 MG/5 ML SYRINGE IV PUSH ONE (12:00)
[2017-06-10] MEDS ORDERED: SUCCINYLCHOLINE CHLORIDE 100 MG/5 ML SYRINGE IV PUSH ONE (12:00)
[2017-06-10] MEDS ORDERED: BUPIVACAINE/EPINEPHRINE 0.25% 50 ML VIAL ONE (12:37)
--- NOTE | 2017-06-10 14:49 | PD.OP ---
cc: Mckinley Ozuna MD Operative Report Date of Surgery: Jun 10, 2017 Preoperative Diagnosis: (1) Acute cholecystitis (2) Hepatitis C Postoperative Diagnosis: (1) Acute cholecystitis (2) Hepatitis C Procedure: Laparoscopic cholecystectomy Liver biopsy 3 Anesthesia: GETA Surgeon: Mckinley Ozuna Signs And Displays Sales Representative(s): Андрей BHAGAT Operation and Findings: Complications: None apparent EBL: 20cc Operative findings: Nodular appearing liver. Inflamed distended gallbladder. Procedure in detail: The patient was taken to the operating room and placed in the supine position. General endotracheal anesthesia was induced. The abdomen was prepped and draped in usual sterile fashion and a surgical timeout was performed to verify correct patient procedure and site. Appropriate perioperative antibiotics were administered. Local anesthetic was injected in the skin and subcutaneous tissue superior to the umbilicus and a 5 mm incision performed. The abdomen was entered using the Optiview 5 mm trocar with direct laparoscopic visualization. The abdomen was then insufflated to 15 mmHg with CO2 gas which the patient tolerated well. Next a 12 mm port was placed in the epigastrium and two 5 mm ports in the right upper quadrant and right lateral abdomen. The patient was placed in reverse Trendelenburg position and turned slightly to the left. Attention was turned to the right upper quadrant and the dome of the gallbladder was grasped and retracted cephalad. The gallbladder was distended and inflamed with thickened gallbladder wall. The infundibulum was retracted laterally to expose Calot's triangle. Blunt dissection and judicious use of electrocautery was used to expose the cystic duct and the cystic artery directly entering the gallbladder. Two clips were placed proximally on each of these structures and one distally and they were transected. The gallbladder was then removed from the liver bed using electrocautery. Hemostasis was achieved. The gallbladder was then removed from the abdomen using an Endo Catch bag. The clips were in place on the cystic duct and cystic artery stumps with no bleeding or bile leakage. At this point, the abdomen was allowed to desufflate and trochars were removed. The fascia at the 12 mm port site was closed with 0 Vicryl suture. Skin was closed with subcuticular 4-0 Monocryl as well as Dermabond. The patient tolerated the procedure well and was extubated and taken to PACU in stable condition. All sponge and instrument counts were correct. Mckinley Ozuna MD Jun 10, 2017 14:49
[2017-06-10] MEDS ORDERED: POVIDONE IODINE 5% (ANTISEPSIS KIT) 4 APPLICATIONS EACH NARE PRN (15:30)
[2017-06-10] MEDS ORDERED: LACTATED RINGER'S 1000 ML IV PRN (15:30)
[2017-06-10] MEDS ORDERED: INSULIN HUMAN REGULAR 1,000 UNITS/10 ML VIAL SQ PRN (15:30)
[2017-06-10] MEDS ORDERED: SODIUM CHLORID 0.9% 500 ML IV PRN (15:30)
[2017-06-10] MEDS ORDERED: METOPROLOL TARTRATE 25 MG TAB PO PRN (15:30)
[2017-06-10] MEDS ORDERED: CHLORHEXIDINE GLUCONATE 2 % 1 PACK (2 CLOTHS) TOPICAL PRN (15:30)
[2017-06-10] MEDS ORDERED: *morphine SULFATE 8 MG/ML PERIprocedure ONLY ONE (15:57)
[2017-06-10 16:01] LABS: HEMOGLOBIN A1C 4.6 % (4.3-6.0)
[2017-06-10] MEDS ORDERED: *RESP: ALBUTEROL 2.5 MG/3 ML NEB (PRN) PERIprocedural Use ONLY NEB ONE (16:14)
[2017-06-10] MEDS ORDERED: DO NOT ADM ANY ANTICOAGULANT DRUGS PRN (18:15)
[2017-06-10] MEDS: oxyCODONE/ACETAMINOPHEN 10 MG/325 MG TAB PO PRN (21:25)
[2017-06-11] VITALS (7 sets, daily range): BP systolic 100–120; BP diastolic 65–71; PULSE 59–94; RESP 17–18; TEMP 98.6–99.3; O2SAT 91–94
[2017-06-11] MEDS: oxyCODONE/ACETAMINOPHEN 10 MG/325 MG TAB PO PRN ×2 (03:00→10:12)
[2017-06-11] MEDS: DOCUSATE SODIUM 50 MG/SENNA 8.6 MG TAB PO SCH (08:29)
[2017-06-11] MEDS: SODIUM CHLORIDE 0.9% FLUSH 10 ML FLUSH IV FLUSH SCH (08:34)
[2017-06-11 08:58] LABS: AUTOMATED NEUTROPHIL # 6.2 TH/MM3 (1.8-7.7); BASOPHIL % 0.1 % (0.0-2.0); EOSINOPHIL % 0.1 % (0.0-4.0); HEMATOCRIT 39.8 % (39.0-51.0); HEMOGLOBIN 13.9 GM/DL (13.0-17.0); LYMPH % 10.6 % (9.0-44.0); LYMPHOCYTE # 0.8 TH/MM3 (1.0-4.8); MEAN CELL VOLUME 91.1 FL (80.0-100.0); MEAN CORPUSCULAR HEMOGLOBIN 31.9 PG (27.0-34.0); MEAN PLATELET VOLUME 9.4 FL (7.0-11.0); MONO % 9.5 % (0.0-8.0); MONOCYTE # 0.7 TH/MM3 (0-0.9); NEUT % 79.7 % (16.0-70.0); PLATELET COUNT 115 TH/MM3 (150-450); RED BLOOD COUNT 4.37 MIL/MM3 (4.50-5.90); RED CELL DISTRIBUTION WIDTH 13.7 % (11.6-17.2); WHITE BLOOD COUNT 7.8 TH/MM3 (4.0-11.0)
[2017-06-11 09:15] LABS: ALBUMIN 3.5 GM/DL (3.4-5.0); AST (GOT) 72 U/L (15-37); BICARBONATE 31.8 MEQ/L (21.0-32.0); BLOOD UREA NITROGEN 16 MG/DL (7-18); CALCIUM 9.1 MG/DL (8.5-10.1); CHLORIDE 97 MEQ/L (98-107); CREATININE 0.74 MG/DL (0.60-1.30); GLOMERULAR FILTRATION RATE 108 ML/MIN (>89); SODIUM (NA) 134 MEQ/L (136-145)
[2017-06-11 09:17] LABS: GLUCOSE,RANDOM 112 MG/DL (74-106)
[2017-06-11 09:24] LABS: ALKALINE PHOSPHATASE 84 U/L (45-117); ALT (GPT) 67 U/L (12-78); PHOSPHORUS 2.6 MG/DL (2.5-4.9); TOTAL PROTEIN 7.9 GM/DL (6.4-8.2)
--- NOTE | 2017-06-11 09:41 | HHI.PR ---
Subjective Remarks in no acute distress. has minimal abdominal pain. no nausea or vomiting. afebrile. Objective Vitals Vital Signs Date Time Temp Pulse Resp B/P (MAP) Pulse Ox O2 Delivery O2 Flow Rate FiO2 06/11/17 05:24 98.8 70 18 108/66 (80) 91 06/11/17 01:19 85 06/11/17 00:21 99.3 94 18 100/65 (77) 92 06/10/17 20:42 98.8 111 18 111/70 (84) 96 06/10/17 16:30 97.9 82 16 135/85 (102) 97 Nasal Cannula 2 06/10/17 16:15 92 16 139/74 (95) 97 Nasal Cannula 2 06/10/17 16:00 84 17 128/78 (95) 99 Nasal Cannula 2 06/10/17 15:45 82 15 115/74 (88) 99 Nasal Cannula 2 06/10/17 15:30 87 15 146/69 (94) 97 Nasal Cannula 2 06/10/17 15:15 91 16 129/70 (89) 99 Nasal Cannula 2 06/10/17 15:09 98.0 71 15 142/67 (92) 96 Nasal Cannula 2 06/10/17 12:41 97.4 80 20 124/72 (89) 94 I/O 06/10/17 06/10/17 06/10/17 06/11/17 06/11/17 06/11/17 06:59 14:59 22:59 06:59 14:59 22:59 Intake Total 100 ml 1700 ml 0 ml Output Total 200 ml 0 ml Balance 100 ml 1500 ml 0 ml Intake Oral 0 ml IV Total 100 ml 100 ml 0 ml Other 1600 ml Output Urine Total 0 ml Estimated Blood Loss 200 ml # Voids 2 # Bowel Movements 0 Result Diagram: 06/11/17 0819 06/11/17 0819 Imaging Last Impressions Abdomen Ultrasound 06/09/17 0000 Signed Impressions: Service Date/Time: Friday, June 09, 2017 16:11 - CONCLUSION: 1. Mild splenomegaly. 2. No acute abnormality. Modesto Das Jr., MD Objective Remarks GENERAL: This is a well-nourished, well-developed patient, in no apparent distress. CARDIOVASCULAR: Regular rate and regular rhythm without murmurs, gallops, or rubs. RESPIRATORY: Clear to auscultation. Breath sounds equal bilaterally. No wheezes , rales, or rhonchi. GASTROINTESTINAL: Abdomen soft, non-tender, nondistended. Normal, active bowel sounds MUSCULOSKELETAL: Extremities without clubbing, cyanosis, or edema. NEURO: Alert & Oriented x4 to person, place, time, situation. Moves all ext x4 Procedures cholecystectomy liver biopsy Medications and IVs Current Medications Sodium Chloride 500 ml @ 500 mls/hr BOLUS ONCE IV Last administered on 23:08; Start 06/08/17 at 23:00; Stop 06/08/17 at 23:59; Status DC Ondansetron HCl (Zofran Inj) 4 mg ONCE ONCE IV PUSH Last administered on 06/08 23:08; Start 06/08/17 at 23:00; Stop 06/08/17 at 23:01; Status DC Hydromorphone HCl (Dilaudid Pf Inj) 0.2 mg ONCE ONCE IV PUSH Last administered on 06/08/17 23:08; Start 06/08/17 at 23:00; Stop 06/08/17 at 23 :01; Status DC Piperacillin Sod/ Tazobactam Sod 50 ml @ 100 mls/hr ONCE ONCE IV Last administered on 06/09/17 00:38; Start 06/09/17 at 00:45; Stop 06/09/17 at 01 :14; Status DC Sodium Chloride (NS Flush) 2 ml UNSCH PRN IV FLUSH FLUSH AFTER USING IV ACCESS ; Start 06/09/17 at 01:15; Stop 06/09/17 at 09:04; Status DC Sodium Chloride (NS Flush) 2 ml BID IV FLUSH ; Start 06/09/17 at 09:00; Stop 06/09/17 at 09:04; Status DC Naloxone HCl (Narcan Inj) 0.4 mg UNSCH PRN IV PUSH SEE LABEL COMMENTS; Start 06/09/17 at 01:15; Stop 06/09/17 at 09:04; Status DC Hydromorphone HCl (Dilaudid Pf Inj) 0.2 mg Q4H PRN IV PUSH pain >5 Last administered on 06/09/17 04:40; Start 06/09/17 at 01:15; Stop 06/09/17 at 08 :57; Status DC Piperacillin Sod/ Tazobactam Sod 100 ml @ 200 mls/hr Q6H IV Last administered on 06/10/17 13:17; Start 06/09/17 at 06:15; Stop 06/10/17 at 14:48; Status DC Ondansetron HCl (Zofran Inj) 4 mg Q6HR PRN IV PUSH nausea Last administered on 06/09/17 05:56; Start 06/09/17 at 05:15; Stop 06/09/17 at 09:05; Status DC Pneumococcal Polyvalent Vaccine (Pneumovax-23 Inj) 25 mcg ONCE ONCE IM ; Start 06/10/17 at 10:00; Stop 06/10/17 at 10:01; Status DC Influenza Virus Vaccine (Flu (Quadrivalent) Vaccine Inj) 0.5 ml ONCE ONCE IM ; Start 06/10/17 at 10:00; Stop 06/10/17 at 10:01; Status DC Sodium Chloride (NS Flush) 2 ml UNSCH PRN IV FLUSH FLUSH AFTER USING IV ACCESS ; Start 06/09/17 at 09:00 Sodium Chloride (NS Flush) 2 ml BID IV FLUSH Last administered on 06/11/17 08 :34; Start 06/09/17 at 09:00 Acetaminophen (Tylenol) 650 mg Q4H PRN PO TEMP > 100.4; Start 06/09/17 at 09: 00 Ondansetron HCl (Zofran Inj) 4 mg Q6H PRN IVP NAUSEA OR VOMITING Last administered on 06/10/17 08:15; Start 06/09/17 at 09:00 Prochlorperazine (Compazine Supp) 25 mg Q12H PRN RECTAL NAUSEA OR VOMITING; Start 06/09/17 at 09:00 Acetaminophen (Tylenol) 650 mg Q6H PRN PO PAIN SCALE 1 TO 2; Start 06/09/17 at 09:00 Oxycodone/ Acetaminophen (Percocet 5-325 Mg) 1 tab Q6H PRN PO PAIN SCALE 3 TO 5; Start 06/09/17 at 09:00 Oxycodone/ Acetaminophen (Percocet 10-325 Mg) 1 tab Q6H PRN PO PAIN SCALE 6 TO 10 Last administered on 06/11/17 03:00; Start 06/09/17 at 09:00 Morphine Sulfate (Morphine Inj) 2 mg Q3H PRN IV PUSH Pain 3-5; if unable to take PO; Start 06/09/17 at 09:00 Morphine Sulfate (Morphine Inj) 4 mg Q3H PRN IV PUSH Pain 6-10;if unable to take PO Last administered on 06/09/17 18:24; Start 06/09/17 at 09:00 Naloxone HCl (Narcan Inj) 0.4 mg UNSCH PRN IV PUSH SEE LABEL COMMENTS; Start 06/09/17 at 09:00 Senna/Docusate Sodium (Neva-Colace) 1 tab BID PO Last administered on 08:29; Start 06/09/17 at 09:00 Magnesium Hydroxide (Milk Of Magnesia Liq) 30 ml Q12H PRN PO Mild constipation ; Start 06/09/17 at 09:00 Sennosides (Senokot) 17.2 mg Q12H PRN PO Moderate constipation; Start at 09:00 Bisacodyl (Dulcolax Supp) 10 mg DAILY PRN RECTAL SEVERE CONSITIPATION; Start 06/09/17 at 09:00 Lactulose (Lactulose Liq) 30 ml DAILY PRN PO SEVERE CONSITIPATION; Start 06/09 at 09:00 Ketorolac Tromethamine (Toradol Inj) 30 mg Q6H PRN IV PUSH PAIN 5-10; Start at 13:15; Stop 06/14/17 at 13:14 Bupivacaine HCl/ Epinephrine Bitart (Sensorcaine-Epinephrine 0.25% Inj) 50 ml STK-MED ONCE .ROUTE Last administered on 06/10/17 13:22; Start 06/10/17 at 12:37; Stop 06/10/17 at 12:38; Status DC Lactated Ringer's 1,000 ml @ 30 mls/hr Q24H PRN IV SEE LABEL COMMENTS; Start 06/10/17 at 15:30; Stop 06/10/17 at 18:08; Status DC Sodium Chloride 500 ml @ 30 mls/hr [id number] PRN IV SEE LABEL COMMENTS; Start at 15:30; Stop 06/10/17 at 18:08; Status DC Metoprolol Tartrate (Lopressor) 25 mg [employer] PRN PO SEE LABEL COMMENTS; Start 06/10/17 at 15:30; Stop 06/10/17 at 18:08; Status DC Povidone Iodine (Betadine 5% Antisepsis Kit) 1 applic [employer] PRN EACH NARE SEE LABEL COMMENTS; Start 06/10/17 at 15:30; Stop 06/10/17 at 18:08; Status DC Chlorhexidine Gluconate (Chlorhexidine 2% Cloth) 3 pack [employer] PRN TOPICAL SEE LABEL COMMENTS; Start 06/10/17 at 15:30; Stop 06/10/17 at 18:08; Status DC Insulin Human Regular (NovoLIN R INJ) See Protocol Table ... [employer] PRN SQ SEE PROTOCOL TABLE; Start 06/10/17 at 15:30; Stop 06/10/17 at 18:08; Status DC Morphine Sulfate (*morphine INJ PERIprocedure ONLY) 8 mg STK-MED ONCE .ROUTE Last administered on 06/10/17t 15:57; Start 06/10/17 at 15:57; Stop 06/10/17 at 15:58; Status DC Albuterol Sulfate (*ALBUTEROL NEB PERIprocedure ONLY) 2.5 mg STK-MED ONCE NEB Last administered on 06/10/17t 16:14; Start 06/10/17 at 16:14; Stop 06/10/17 at 16:15; Status DC Miscellaneous Information ALL NURSING DEPARTME... UNSCH PRN .XX SEE LABEL COMMENTS; Start 06/10/17 at 18:15; Stop 06/11/17 at 18:14 A/P Problem List: (1) Hepatitis C ICD Code: B19.20 - Hepatitis C Status: Chronic (2) Abdominal pain ICD Code: R10.9 - Unspecified abdominal pain (3) GERD (gastroesophageal reflux disease) ICD Code: K21.9 - Gastro-esophageal reflux disease without esophagitis Status: Acute (4) COPD (chronic obstructive pulmonary disease) ICD Code: J44.9 - COPD (chronic obstructive pulmonary disease) Status: Chronic (5) Thrombocytopenia ICD Code: D69.6 - Thrombocytopenia Status: Acute Assessment and Plan A/P abdominal pain- now better s/p cholecystectomy- management per general surgery COPD chronic recommend smoking cessation Elevated LFTs secondary to chronic hepatitis C- s/p liver biopsy- f/u as outpatient. thrombocytopenia- chronic due to hepatitis C DVT prophylaxis with SCDs Discharge Planning dc home when cleared by surgery. see med list. f/u; pcp and surgery. d/w the patient. Ramiro Miranda MD Jun 11, 2017 09:41
[2017-06-11] MEDS ORDERED: OXYC1TAB63 PO (09:42)
--- NOTE | 2017-06-11 09:43 | HHI.DS ---
Discharge Summary Admission Date Jun 09, 2017 at 02:25 Discharge Date: Jun 11, 2017 Admitting Diagnosis Acute cholecystitis (1) Hepatitis C ICD Code: B19.20 - Hepatitis C Diagnosis: Secondary Status: Chronic (2) Abdominal pain ICD Code: R10.9 - Unspecified abdominal pain Diagnosis: Principal (3) GERD (gastroesophageal reflux disease) ICD Code: K21.9 - Gastro-esophageal reflux disease without esophagitis Diagnosis: Secondary Status: Acute (4) COPD (chronic obstructive pulmonary disease) ICD Code: J44.9 - COPD (chronic obstructive pulmonary disease) Diagnosis: Secondary Status: Chronic (5) Thrombocytopenia ICD Code: D69.6 - Thrombocytopenia Diagnosis: Secondary Status: Acute Procedures cholecystectomy liver biopsy Brief History - From Admission The patient is an 61 year old male who presents to the [facility] emergency department with a history of abdominal pain that began again at 4:30PM. He last ate at 12:30 PM. He reports having n/v x2. He denies having any diarrhea. His last BM was earlier today. The pain is in the right upper quadrant of the abdomen. It radiates to his back. He has a dry cough that began earlier today. He reports having chest pain with this. He denies having a stress test. The patient reports that all the symptoms are similar to what he experienced when he was admitted to the hospital and diagnosed with acute cholecystitis from May [address] Ozuna, the general surgeon did see him in the hospital. The patient was started on IV antibiotic and then discharged home on Cipro and Flagyl. The patient completed the course of antibiotic. He did follow-up with Dr. Ozuna at the beginning of May and it was recommended that he follow a strict diet and report back on June 17. The patient reports that at that time he was uninsured. He reports that since then he has qualified for patient assistance. He was told that if he develops a recurrence of abdominal pain he should call Dr. Ozuna's office. He did call, however the office was closed. He then decided to come to the emergency department. On review of systems otherwise, the patient denies any recent fevers, neck pain, shortness of breath, diarrhea, urinary symptoms, or neurologic symptoms. He quit smoking 3 years ago. HAS ABDOMINAL PAIN AWAIT SURGICAL EVALUATION WILL ORDER US AND HIDA SCAN CBC/BMP: 06/11/17 0819 06/11/17 0819 Significant Findings Laboratory Tests Test 06/08/17 22:20 06/08/17 22:30 06/08/17 22:43 06/09/17 15:50 Platelet Count 105 TH/MM3 (150-450) Neutrophils (%) (Auto) 80.1 % (16.0-70.0) Monocytes (%) (Auto) 8.4 % (0.0-8.0) Lymphocytes # (Auto) 0.6 TH/MM3 (1.0-4.8) Random Glucose 114 MG/DL (74-106) Total Protein 8.6 GM/DL (6.4-8.2) Aspartate Amino Transf (AST/SGOT) 45 U/L (15-37) Sodium Level 133 MEQ/L (136-145) Troponin I LESS THAN 0.02 NG/ML C-Reactive Protein 0.88 MG/DL (0.00-0.30) Lipase 49 U/L (73-393) Urine Ketones 10 mg/dL (NEG) Urine Mucus FEW /lpf (OCC) Cholesterol Level 84 MG/DL (120-200) HDL Cholesterol 39.9 MG/DL (40.0-60.0) Test 06/10/17 09:53 06/11/17 08:19 Red Blood Count 4.48 MIL/MM3 (4.50-5.90) 4.37 MIL/MM3 (4.50-5.90) Platelet Count 93 TH/MM3 (150-450) 115 TH/MM3 (150-450) Neutrophils (%) (Auto) 80.1 % (16.0-70.0) 79.7 % (16.0-70.0) Monocytes (%) (Auto) 9.0 % (0.0-8.0) 9.5 % (0.0-8.0) Lymphocytes # (Auto) 0.6 TH/MM3 (1.0-4.8) 0.8 TH/MM3 (1.0-4.8) Platelet Estimate LOW (NORMAL) Total Protein 8.5 GM/DL (6.4-8.2) Aspartate Amino Transf (AST/SGOT) 44 U/L (15-37) 72 U/L (15-37) Total Bilirubin 1.7 MG/DL (0.2-1.0) Sodium Level 134 MEQ/L (136-145) 134 MEQ/L (136-145) Chloride Level 96 MEQ/L (98-107) 97 MEQ/L (98-107) Estimat Glomerular Filtration Rate 81 ML/MIN (>89) Lipase 43 U/L (73-393) Free Thyroxine 1.57 NG/DL (0.76-1.46) Random Glucose 112 MG/DL (74-106) PE at Discharge GENERAL: This is a well-nourished, well-developed patient, in no apparent distress. CARDIOVASCULAR: Regular rate and regular rhythm without murmurs, gallops, or rubs. RESPIRATORY: Clear to auscultation. Breath sounds equal bilaterally. No wheezes , rales, or rhonchi. GASTROINTESTINAL: Abdomen soft, non-tender, nondistended. Normal, active bowel sounds MUSCULOSKELETAL: Extremities without clubbing, cyanosis, or edema. NEURO: Alert & Oriented x4 to person, place, time, situation. Moves all ext x4 Hospital Course abdominal pain- now better s/p cholecystectomy- management per general surgery COPD chronic recommend smoking cessation Elevated LFTs secondary to chronic hepatitis C- s/p liver biopsy- f/u as outpatient. thrombocytopenia- chronic due to hepatitis C DVT prophylaxis with SCDs Pt Condition on Discharge: Fair Discharge Disposition: Discharge Home Discharge Time: <= 30 minutes Discharge Instructions DIET: Follow Instructions for: Heart Healthy Diet, Low Fat Diet Activities you can perform: Regular-No Restrictions Ramiro Miranda MD Jun 11, 2017 09:43
--- NOTE | 2017-06-11 13:03 | HHI.PR ---
Subjective Subjective Notes He is having severe reflux and some RUQ pain. Otherwise doing well. Objective Vitals/I&O Vital Signs Date Time Temp Pulse Resp B/P (MAP) Pulse Ox O2 Delivery O2 Flow Rate FiO2 06/11/17 12:29 94 06/11/17 12:18 98.9 76 17 112/69 (83) 06/10/17 16:30 Nasal Cannula 2 06/09/17 21:27 21 Labs Laboratory Tests Test 06/11/17 08:19 White Blood Count 7.8 Red Blood Count 4.37 Hemoglobin 13.9 Hematocrit 39.8 Mean Corpuscular Volume 91.1 Mean Corpuscular Hemoglobin 31.9 Mean Corpuscular Hemoglobin Concent 35.0 Red Cell Distribution Width 13.7 Platelet Count 115 Mean Platelet Volume 9.4 Neutrophils (%) (Auto) 79.7 Lymphocytes (%) (Auto) 10.6 Monocytes (%) (Auto) 9.5 Eosinophils (%) (Auto) 0.1 Basophils (%) (Auto) 0.1 Neutrophils # (Auto) 6.2 Lymphocytes # (Auto) 0.8 Monocytes # (Auto) 0.7 Eosinophils # (Auto) 0.0 Basophils # (Auto) 0.0 CBC Comment DIFF FINAL Differential Comment Blood Urea Nitrogen 16 Creatinine 0.74 Random Glucose 112 Total Protein 7.9 Albumin 3.5 Calcium Level 9.1 Phosphorus Level 2.6 Magnesium Level 2.0 Alkaline Phosphatase 84 Aspartate Amino Transf (AST/SGOT) 72 Alanine Aminotransferase (ALT/SGPT) 67 Total Bilirubin 1.0 Sodium Level 134 Potassium Level 4.1 Chloride Level 97 Carbon Dioxide Level 31.8 Anion Gap 5 Estimat Glomerular Filtration Rate 108 Radiology Last Impressions Abdomen Ultrasound 06/09/17 0000 Signed Impressions: Service Date/Time: Friday, June 09, 2017 16:11 - CONCLUSION: 1. Mild splenomegaly. 2. No acute abnormality. Modesto Das Jr., MD Narrative Exam NAD Abd: soft, inc c/d/i. RUQ ttp A/P Assessment and Plan 61 yo M POD 1 s/p lap debra and liver biopsy. Doing well overall. Having reflux making eating more difficult. Recommend d/c home. He is going to buy OTC zantac for reflux. F/u with me in two weeks. Laith,Mckinley JIMENEZ Jun 11, 2017 13:03
[2017-06-11] MEDS ORDERED: OMEP20TA PO (13:26)
== END 2017-06-11 14:31 | disposition home or self-care (01) | DRG 419 ==
LOC: NEPC 19:54 → INTOOBSV 06-09 00:33 → NEDA 06-09 00:33 → OBSVTOIN 06-09 00:33 → UNDOADMIN 06-09 00:33 → INTOOBSV 06-09 01:03 → NEDA 06-09 01:03 → NEPFCDU 06-09 01:57 → OBSVTOIN 06-09 02:25 → N05B 06-09 03:54
PROVIDERS: ADMIT Internal Medicine; ATTEND Internal Medicine
PROC: 0FB03ZX Excision of Liver, Percutaneous Approach, Diagnostic (ICD-10-PCS; 2017-06-10)
PROC: 0FT44ZZ Resection of Gallbladder, Percutaneous Endoscopic Approach (ICD-10-PCS; principal; 2017-06-10 12:54)
DX: K80.12 Calculus of gallbladder with acute and chronic cholecystitis without obstruction (principal); D69.6 Thrombocytopenia, unspecified; B18.2 Chronic viral hepatitis C; J44.9 Chronic obstructive pulmonary disease, unspecified; K21.9 Gastro-esophageal reflux disease without esophagitis; Z87.891 Personal history of nicotine dependence
CPT/HCPCS: 76700; 80053; 80061; 81001; 82150; 83036; 83605; 83690; 83735; 84100; 84439; 84443; 84484; 85025; 86140; 88304; 88307; 88313; 93005; 96361; 96374; 96375; J1170; J0330; J1100; J2250; J2270; J2370; J2405; J2543; J2710; J3010; J7040; J7120; J7613